=== PATIENT | female | born 1960 | race Caucasian/White ===

== ENCOUNTER → 2017-03-20 | Outpatient (CLI) | payer BC, OTHER ==
[~2017-03-20] MED LIST: AGM875 PO; AMOX875T PO; ERGO500037 PO; LRT5 PO; OXYC-57 PO; SULF800T23 PO; XRL10 PO
[2017-03-20 13:34] LABS: HEMATOCRIT 45.4 % (37-47); MEAN CELL VOLUME 87.1 fL (80-100); MEAN CORPUSCULAR HEMOGLOBIN 28.2 pg (25-34); MEAN CORPUSCULAR HGB CONC 32.4 g/dl (32-36); MEAN PLATELET VOLUME 11.2 fL (7.4-10.4); PLATELET COUNT 211 K/uL (130-400); RED BLOOD COUNT 5.21 M/uL (4.2-5.4); WHITE BLOOD COUNT 8.94 K/uL (4.8-10.8)
[2017-03-20 14:09] LABS: ALT/SGPT 19 U/L (12-78); BLOOD UREA NITROGEN 16 mg/dl (7-18); BUN/CREATININE RATIO 18.3 (10-20); CARBON DIOXIDE 29 mmol/L (21-32); CHLORIDE 103 mmol/L (98-107); CREATININE 0.86 mg/dl (0.60-1.20); GLUCOSE 87 mg/dl (70-99); SODIUM 139 mmol/L (136-145)
[2017-03-20 14:19] LABS: ALB/GLOB RATIO 1.3 (0.9-2); ALKALINE PHOSPHATASE 74 U/L (45-117); AST/SGOT 11 U/L (15-37)
[2017-03-20 14:30] LABS: CALCIUM 9.3 mg/dl (8.5-10.1)
[2017-03-23 14:44] LABS: EBV EARLY ANTIGEN AB <0.91 INDEX; EPSTEIN BARR VIR CAPSID IGG 3.73 INDEX
== END | disposition home or self-care (01) ==
LOC: C.LABMFLN 10:23
PROVIDERS: ATTEND Family Medicine
DX: R53.83 Other fatigue (principal); T14.8 Other injury of unspecified body region; X58.XXXA Exposure to other specified factors, initial encounter

== ENCOUNTER → 2017-04-03 | Outpatient (CLI) | payer BC | END | disposition home or self-care (01) | LOC: C.LABMFLN 15:01 | PROVIDERS: ATTEND Family Medicine | DX: S80.10XA Contusion of unspecified lower leg, initial encounter (principal); X58.XXXA Exposure to other specified factors, initial encounter ==

== ENCOUNTER 2017-04-07 13:31 | Inpatient (IN) | payer BC ==
[~2017-04-07] VITALS: Ht 167.6 cm; Wt 90.5 kg
[~2017-04-07 13:31] MED LIST changes: -AMOX875T PO; -ERGO500037 PO; -OXYC-57 PO; -XRL10 PO
--- NOTE | 2017-04-07 14:07 | HISTORY & PHYSICAL EXAMINATION ---
DATE OF ADMISSION: 04/07/2017 CHIEF COMPLAINT: Left leg injury. HISTORY OF PRESENT ILLNESS: This is a 56-year-old female patient of Dr. Valverde who sustained an injury to her left leg on 03/30/2017. The patient got her leg smashed between a cement step and storm door. The patient reported to [facility] where x-rays were obtained on her tib-fib and her ankle on the left lower extremity. These were determined to be negative for any type fractures or dislocations. She was sent home. The following day she did see her PCP and D-dimer test was noted to be elevated. She had a chest CT and ultrasound negative for PE, but she was positive for DVT. The patient was subsequently put on Xarelto 15 mg b.i.d.; however, upon visiting her family physician again they were concerned about a compartment syndrome on her left lower extremity. She was instructed to stop the Xarelto and was referred to orthopedics. PAST MEDICAL HISTORY: Irregular heartbeat or palpitation nontreated. Currently a DVT, acid reflux, obesity. SOCIAL HISTORY: Nonsmoker, nondrinker. PAST SURGICAL HISTORY: Hernia repair. FAMILY HISTORY: Noncontributory. REVIEW OF SYSTEMS: The patient complains of left lower leg calf swelling and pain. She also complains of a superficial abrasion with redness. Otherwise, denies any shortness of breath, chest pain, nausea, vomiting or any other joint complaints. MEDICATIONS: She uses [id number] vitamin D. ALLERGIES: CECLOR AND CLINDAMYCIN. PHYSICAL EXAMINATION: GENERAL: Well-developed, well-nourished 56-year-old female in no acute distress. She is alert and oriented x3 and pleasant. HEAD, EYES, EARS, NOSE, AND THROAT: Normocephalic, atraumatic. Extraocular motions are intact. Pupils are equal and reactive to light. HEART: Regular rate and rhythm, no murmurs appreciated. LUNGS: Clear. ABDOMEN: Soft and nontender, bowel sounds are present. EXTREMITIES: Left lower extremity, she has got obvious swelling of the leg below the level of the knee. This is not tense like a compartment syndrome would look. It is somewhat supple, however she is tender due to the blood clot. She has also got a superficial abrasion with some cellulitis around it on her medial calf area. She has good distal pulses. Gentle passive range of motion of the ankle and plantarflexion, dorsiflexion and passive range of motion of her toes do not elicit any pain. She has a negative Homans sign. She has a negative exam in her knee. DIAGNOSES: 1. Left lower extremity deep venous thrombosis. 2. Left lower extremity superficial abrasion with cellulitis. 3. Possible development of compartment syndrome, left lower extremity, low possibility at this point in time. She also has a history of irregular heartbeat, acid reflux and obesity. PLAN: At this point in time, we will admit her to the hospital for IV antibiotics that being vancomycin. She does look like she is developing a cellulitis around her abrasion on her left lower leg. She also currently has a DVT. We will have to get medicine on board and consulted for treatment for that. Per Dr. Jacobsen we will also get vascular consult due to the fact that she may be developing a compartment syndrome plus she needs blood thinners. She may need some sort of filter placement. We will consult pharmacy for vancomycin dosing and we will consult infectious disease for antibiotic choices. We will consult [facility] for medical management. The major issues at this point in time is treating the DVT and preventing the development of a compartment syndrome left LE, secondly treating the cellulitis on her leg. We will follow her in the hospital. LYNDA
[2017-04-07 14:24] VITALS: BP 157/87; PULSE 88; TEMP 36.6; O2SAT 99
[2017-04-07 14:25] VITALS: Ht 167.6 cm; Wt 90.5 kg
[2017-04-07] MEDS ORDERED: XRL10 PO (14:47)
[2017-04-07] MEDS ORDERED: ERGO500037 PO (14:47)
[2017-04-07 14:55] VITALS: O2SAT 99
[2017-04-07 15:18] VITALS: BP 142/84; PULSE 88; TEMP 36.9; O2SAT 99
[2017-04-07 15:29] LABS: BASO % 0.2 %; BASO ABS # 0.02 K/uL (0-0.2); COMPLETE YES; EOS % 2.1 %; HEMATOCRIT 42.1 % (37-47); IG% 0.5 %; LYMPH % 33.2 %; LYMPH ABS # 2.72 K/uL (1.2-3.4); MEAN CELL VOLUME 86.8 fL (80-100); MEAN CORPUSCULAR HEMOGLOBIN 28.7 pg (25-34); MEAN PLATELET VOLUME 11.4 fL (7.4-10.4); MONO % 6.7 %; NEUT % 57.3 %; PLATELET COUNT 197 K/uL (130-400); RED BLOOD COUNT 4.85 M/uL (4.2-5.4); WHITE BLOOD COUNT 8.19 K/uL (4.8-10.8)
--- NOTE | 2017-04-07 15:34 | Medical Consult ---
Consultation Date of Consultation: April 07, 2017. Attending Physician: Fred Jacobsen M.D. Reason for Consultation: Medical management History of Present Illness This is a 56 yo F with PMHx of palpitations, GERD, obesity, LLE DVT on xarelto with development of cellulitis and possible compartment syndrome after a injury sustained on 03/30 where she was trying to close her door, and the screen door fell out which caused her to fall, her foot was caught between a cement step and the screen door. She was seen in [place] [facility] and had no acute fractures at that time. She had a venous ultrasound completed and found to have LLE DVT for which she was placed on xarelto on 04/05. After concerns of developing compartment syndrome she stopped taking xarelto (had a total of 5 doses) and was referred to the orthopedic service by her PCP this morning. She has been admitted under Dr. Jacobsen's service. Medicine has been consulted for medical management. The patient was seen and examined this afternoon. She reports her pain is significant, and has been using oxycodone which dulls the pain. She has been unable to bear weight on this leg for a few days now, with today being the worst and she has required a walker to help with ambulation. She denies any fevers, chills or sweats. Pt reports the redness surrounding the abrasion seemed worse this morning when she woke up. Since RASHEL wrap was applied at approx 1pm, she thinks the redness has decreased. The left calf is extremely tender surrounding the medial abraision/contusion. She is also quite swollen and experiencing some numbness in the arch of her foot. She has been eating and drinking fine, but reports since starting oxycodone she has had less bowel movements, LBM was 3 days ago. In regards to an irregular heart beat - pt reports she feels palpitations on and off since 2010. She reports it has been happening more for the past 3 months. There are no trigger factors, and it occurs when she is sitting down, walking, or doing normal ADLs. She was placed on a holter monitor ~2 weeks ago for a 48 hour monitoring, however it only recorded for 7 hours. She was supposed to be rescheduled for holter monitoring again on April 18. 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 Social History Smoking Status: Never Smoker Smokeless Tobacco Use: No Alcohol Use: occasionally Drug Use: none Marital Status: Housing Status: lives with family Occupation Status: employed Allergies Coded Allergies: Cefaclor (Verified Allergy, Intermediate, HIVES, 04/07/17) Clindamycin (Verified Allergy, Intermediate, HIVES, 04/07/17) Review of Systems Constitutional: No chills, No fever, No sweats Eyes: No diplopia, No problem reported ENT: No sore throat, No trouble swallowing Respiratory: No dyspnea at rest, No dyspnea on exertion, No shortness of breath Cardiovascular: + palpitations, No chest pain Abdomen: + constipation, No diarrhea, No nausea, No pain, No vomiting Musculoskeletal: + calf pain, + problem reported (See HPI), + swelling, No joint pain Genitourinary - Female: No dysuria, No hematuria Neurologic: No paralysis, No weakness Hematologic / Lymphatic: + problem reported Integumentary: No itch, No rash Physical Exam Date Time Temp Pulse Resp B/P Pulse Ox O2 Delivery O2 Flow Rate FiO2 04/07/17 14:55 99 Room Air 04/07/17 14:25 Room Air 99.0 04/07/17 14:24 36.6 88 16 157/87 99 Room Air General Appearance: WD/WN, no apparent distress Head: normocephalic, atraumatic Eyes: PERRL, EOMI ENT: hearing grossly normal, pharynx normal Neck: supple, no JVD Respiratory/Chest: chest non-tender, lungs clear, normal breath sounds, no accessory muscle use Cardiovascular: regular rate, rhythm, no gallop, no murmur Abdomen/GI: normal bowel sounds, non tender, soft, no organomegaly Back: normal inspection Extremities/Musculoskelatal: + pertinent finding (LLE with abraision with underlying ecchymosis, + erythema surrounding the area has been outlines, + swelling from toes up to knee, nonpitting, + Tenderness with minimal palpation, skin is tight, pt unable to bear weight without pain. ) Neurologic/Psych: alert, normal reflexes, oriented x 3, + pertinent finding ( sensation to light touch intact in BLE.) Skin: normal color, warm/dry Laboratory Results Last 24 Hours Test 04/07/17 14:41 Assessment & Plan This is a 56 yo F with PMHx of irregular heartbeat, GERD, obesity, LLE DVT on xarelto with development of cellulitis and possible compartment syndrome after a injury sustained on 03/30 where she was trying to close her door, and the screen door fell out which caused her to fall, her foot was caught between a cement step and the screen door. She was seen in [place] ER and had no acute fractures at that time. She was scanned and found to have LLE DVT for which she was placed on xarelto. After concerns of developing comparment syndrome she stopped taking xarelto and was referred to the orthopedic service by her PCP this morning. She has been admitted under Dr. Jacobsen's service. Medicine has been consulted for LLE cellulitis. LLE Injury, possible development of compartment syndrome - management per primary team - holding xarelto for possible surgical intervention - ESR is elevated - Analgesia with percocet, tramadol - Will initiate bowel regimen as last BM was 3 days ago with dulcolax and miralax scheduled. DVT - holding xarelto in light of possible surgical procedure needed for compartment syndrome - Will ask cardiology and vascular surgery to discuss anticoagulation recs - ? if needs for IVC filter Cellulitis LLE - Antibiotic regimen with IV vancomycin initiated, WBC =8K without any left shift, other CBC components are WNL as well. - ID has been consulted Palpitations - Pt has report of palpitations as of March 20 in outpatient f/u for a 2 month timeframe. She was supposed to have a Holter monitor set up for within 3 weeks at that time, which would essentially be now, however due to her current status this has been withheld. - Monitor on tele for arrythmias: pt was on Holter monitor approx 2 weeks ago however it only recorded 7 hours worth. Outpatient set up scheduled for April 18. Will need confirmed prior to discharge. DVT ppx: gordy and scds on unaffected leg, (right), holding anticoagulation CODE STATUS: FULL CODE Disposition: From home Reviewed: Pt Seen/Exam by Me History Pt with ongoing pain to LE, improved a bit with elevation. States she feels fine otherwise. No chest pain, SOB. Pain is not worse than prior. States she took 5 doses of xarelto, last dose was yesterday AM. Pt states she became concerned about taking xarelto after seeing several commercials regarding this medication. She called her PCP who saw her this AM and referred her to ortho. Notified by the floor that there is no vascular surgery option this weekend ( neither Dr. Manzo or Dr. Casas). I called ortho concrete products dispatcher, Dr. Caban and explained this to him. He spoke with Dr. Jacobsen who feels that pt will likely not need the OR and therefore no IVC filter. He is agreeable to low dose heparin that can be d/c'd 4 hours prior to OR if needed. Agree with HPI/ROS as noted General Appearance: WD/WN, no apparent distress Respiratory: normal breath sounds, no respiratory distress Cardiovascular: normal peripheral pulses, regular rate, rhythm Gastrointestinal: non tender, soft Extremities: pedal edema (L), other (L LE pain to superficial palpitation) Neurologic/Psychiatric: alert, normal mood/affect, oriented x 3 Skin Characteristics: normal color, warm/dry Assessment/Plan Agree with plan as outlined above. L LE cellulitis with DVT and concern for compartment syndrome d/c xarelto, start low dose heparin As noted above: Notified by the floor that there is no vascular surgery option this weekend (neither Dr. Manzo or Dr. Casas). I called ortho concrete products dispatcher, Dr. Caban and explained this to him. He spoke with Dr. Jacobsen who feels that pt will likely not need the OR and therefore no IVC filter. He is agreeable to low dose heparin that can be d/c'd 4 hours prior to OR if needed. I did inform pt and her family member present at bedside about the above plan change due to no ortho coverage. Extensive discussion about compartment syndrome and alternative plans. She is agreeable to staying at [facility] for monitoring.
[2017-04-07] MEDS ORDERED: VANCOMYCIN CONSULT ACTIVE PRN (15:45)
--- NOTE | 2017-04-07 15:45 | DIAGNOSTIC IMAGING REPORT ---
CHEST ONE VIEW PORTABLE CLINICAL HISTORY: PRE OP COMPARISON STUDY: No previous studies for comparison. FINDINGS: The bones soft tissues and hemidiaphragms are normal. The cardiomediastinal silhouette is normal. The lungs are clear. The pulmonary vasculature is normal. IMPRESSION: Negative chest. Electronically signed by: Jose L Monroy M.D. 04/07/2017 3:43 PM Dictated Date/Time: 04/07/2017 3:42 PM
--- NOTE | 2017-04-07 15:49 | Pharmacy Progress Note ---
Pharmacy Abx Initial Consult Date of Service April 07, 2017. Pharmacy Dosing Scope Date of Consult: 04/07/17 Consultation requested by: Jose L Draper PA-C Pharmacy is consulted to initiate Vancomycin IV dosing therapy, order appropriate labs and adjust drug dose/frequency. Subjective The patient is a 56 year old female admitted on April 07, 2017 at 14:10. Objective Height (Feet): 5 Height (Inches): 6.00 Weight (Kilograms): 90.450 Vital Signs (Past 12Hrs) Vital Signs Past 12 Hours Date Time Temp Pulse Resp B/P Pulse Ox O2 Delivery O2 Flow Rate FiO2 04/07/17 15:18 36.9 88 18 142/84 99 Room Air 04/07/17 14:55 99 Room Air 04/07/17 14:25 Room Air 99.0 04/07/17 14:24 36.6 88 16 157/87 99 Room Air Lab Results (24Hrs) Test 04/07/17 14:41 04/07/17 15:15 White Blood Count 8.19 K/uL (4.8-10.8) Red Blood Count 4.85 M/uL (4.2-5.4) Hemoglobin 13.9 g/dL (12.0-16.0) Hematocrit 42.1 % (37-47) Mean Corpuscular Volume 86.8 fL (80-100) Mean Corpuscular Hemoglobin 28.7 pg (25-34) Mean Corpuscular Hemoglobin Concent 33.0 g/dl (32-36) Platelet Count 197 K/uL (130-400) Mean Platelet Volume 11.4 fL (7.4-10.4) Neutrophils (%) (Auto) 57.3 % Lymphocytes (%) (Auto) 33.2 % Monocytes (%) (Auto) 6.7 % Eosinophils (%) (Auto) 2.1 % Basophils (%) (Auto) 0.2 % Neutrophils # (Auto) 4.69 K/uL (1.4-6.5) Lymphocytes # (Auto) 2.72 K/uL (1.2-3.4) Monocytes # (Auto) 0.55 K/uL (0.11-0.59) Eosinophils # (Auto) 0.17 K/uL (0-0.5) Basophils # (Auto) 0.02 K/uL (0-0.2) RDW Standard Deviation 42.6 fL (36.4-46.3) RDW Coefficient of Variation 13.3 % (11.5-14.5) Immature Granulocyte % (Auto) 0.5 % Immature Granulocyte # (Auto) 0.04 K/uL (0.00-0.02) Micro Results Date/Time Source Procedure Growth Status 04/07/17 15:20 Blood Blood Culture Pending Received 04/07/17 15:15 Blood Blood Culture Pending Received Assessment & Plan Assessment 56 year old female admitted with LLE cellulitis. Patient sustained a injury to her left leg on 03/30/17. Plan Vancomycin IV for treatment of LE cellulitis Vancomycin IV * Loading dose: 2300 mg (25 mg/kg) * Maintenance dose: 1350 mg IV (15 mg/kg) every 12 hours * Goal trough level for cellulitis : 15 to 20 mcg/mL (until more data known) * Trough level ordered for 04/09/17 Pharmacy will continue to follow and will adjust dose/frequency as necessary. Thank you.
[2017-04-07 15:56] LABS: BUN/CREATININE RATIO 11.8 (10-20); C-REACTIVE PROTEIN 2.33 mg/dl (0-0.29); CALCIUM 8.6 mg/dl (8.5-10.1); CREATININE 0.95 mg/dl (0.60-1.20); POTASSIUM 3.7 mmol/L (3.5-5.1)
[2017-04-07] MEDS ORDERED: OXYCODONE/ACETAMINOPHEN 5-325 TAB PO PRN (16:15)
[2017-04-07] MEDS ORDERED: MoRPHine SULFATE 4 MG/ML 1 ML CARP\\VIAL IV PRN (16:15)
[2017-04-07] MEDS ORDERED: HYDROmorphone INJ 1 MG/ML SYR IV PRN (16:15)
[2017-04-07] MEDS ORDERED: MoRPHine SULFATE 2 MG/ML CARP IV PRN (16:15)
[2017-04-07] MEDS ORDERED: VANCOMYCIN INJ 2,300 MG in SODIUM CHLORIDE 0.9% 500ML 500 ML IV ONE (16:30)
[2017-04-07] MEDS: LACTATED RINGER'S 1000ML 1,000 ML IV SCH (16:50)
--- NOTE | 2017-04-07 17:14 | Medical Consult ---
Consultation Date of Consultation: April 07, 2017. Attending Physician: Fred Jacobsen M.D. Reason for Consultation: Left lower extremity cellulitis History of Present Illness Patient is an otherwise healthy 56 yo female who presented fro admission in regards to concern for left lower extremity possible developing compartment syndrome following traumatic injury at home. The patient initially got her left lower extremity caught in between her storm door and a cement block. She suffered abrasions to the area and was evaluated at [place] ED for concerns of fracture. She did not have any fracture or dislocations noted. She was then evaluated by her PCP and was noted to have an elevated DDimer and concern for blood clot. She had CT of the chest which was negative for PE but LLE Venous doppler was positive for DVT. She was placed on anticoagulation at that time but then was noted to have increasing pain and tightness to her left lower extremity. Concern for compartment syndrome was raised and she was sent to ortho for eval and then admitted for concerns of compartment syndrome/ infection. The patient states that last evening, she did have an episode of sweats but she has not had fever that she knows of. WBC countw as 8.19 on admission, and ESR was 13. CRP was mildly elevated at 2.33. She did have multiple pictures of her leg over the past few days and states that today is the first day there was any real surrounding erythema. She notes mild bloody drainage from the area. Blood cultures were drawn and are pending. She has been empirically started on IV Vancomycin but has no history of MRSA or recent hospitalization other than her ED visits. Past Medical/Surgical History PMHx: GERD, Obesity, LLE DVT on Xarelto, possible cellulitis Family History Noncontributory Social History Smoking Status: Never Smoker Smokeless Tobacco Use: No Alcohol Use: occasionally Drug Use: none Marital Status: Housing Status: lives with family Occupation Status: employed Allergies Coded Allergies: Cefaclor (Verified Allergy, Intermediate, HIVES, 04/07/17) Clindamycin (Verified Allergy, Intermediate, HIVES, 04/07/17) Home Medications Reported Home Medications Medications Dose Route/Sig Max Daily Dose Days Date Category Xarelto (Rivaroxaban) 10 Mg Tab 1.5 Tab PO BID 10 04/07/17 Reported Vitamin D 13654 Unit (Ergocalciferol) 50,000 Unit Cap 1 Cap PO 28 04/07/17 Reported Vicodin 5MG/500MG (Acetaminophen/Hydrocodone Bitart) Tab 1-2 Tablet PO Q4-6HR PRN 11/19/08 Rx Bactrim Ds 800MG/160MG (Trimethoprim/Sulfamethoxazole) Tab 1 Tab PO BID 7 11/19/08 Rx Augmentin * (Amoxicillin/Clavulanate Potassium) 875 Mg Tab 1 Tab PO BID 10 11/19/08 Rx Patient States No Home Meds (Miscellaneous) . 11/18/08 Reported Current Inpatient Medications Current Inpatient Medications Medications (Trade) Dose Ordered Sig/Yahaira Route Start Time Stop Time Status Last Admin Dose Admin Vancomycin HCl 1 ea 1 ea UD PRN N/A 04/07/17 15:45 05/07/17 15:44 Lactated Ringer's (Lr 1000ml) 1,000 ml @ 80 mls/hr [id number] IV 04/07/17 16:15 05/07/17 16:14 04/07/17 16:50 80 MLS/HR Oxycodone/ Acetaminophen (Percocet 5-325mg Tab) `1-2 tabs for pain 1 tab ... Q4H PRN PO 04/07/17 16:15 04/21/17 16:14 04/07/17 16:56 2 TAB Morphine Sulfate (MoRPHine SULFATE INJ) 2 mg Q3H PRN IV 04/07/17 16:15 04/21/17 16:14 Morphine Sulfate (MoRPHine SULFATE INJ) 4 mg Q3H PRN IV 04/07/17 16:15 04/21/17 16:14 Hydromorphone HCl (Dilaudid Inj) 0.5 mg Q3H PRN IV 04/07/17 16:15 04/21/17 16:14 UNV Oxycodone/ Acetaminophen (Percocet 5-325mg Tab) 1 tab Q4H PRN PO 04/07/17 16:15 04/21/17 16:14 UNV Bisacodyl (Dulcolax Tab) 5 mg BID PO 04/07/17 21:00 05/07/17 20:59 UNV Polyethylene (Miralax Powder Packet) 17 gm DAILY PO 04/08/17 09:00 05/08/17 08:59 UNV Tramadol HCl 50 mg 50 mg Q4H PRN PO 04/07/17 16:15 05/07/17 16:14 UNV Vancomycin HCl 2300 mg/Sodium Chloride 546 ml @ 200 mls/hr 1630 ONCE IV 04/07/17 16:30 04/07/17 19:13 Vancomycin HCl/ Sodium Chloride (Vancomycin Inj/ Nss 250ml) 277 ml @ 125 mls/hr Q12H IV 04/08/17 04:00 04/17/17 15:59 Review of Systems Constitutional: + sweats, No fever, No weakness Eyes: No worsening of vision ENT: No hearing loss Respiratory: No cough, No shortness of breath Cardiovascular: No chest pain Abdomen: No diarrhea, No nausea, No pain, No vomiting Musculoskeletal: + swelling (left lower extremity- worsening) Genitourinary - Female: No dysuria, No urinary frequency, No urinary urgency Integumentary: + new/changing skin lesions (erythema around abrasion of mid- left lower extremity, bloody drainage), No itch Physical Exam Date Time Temp Pulse Resp B/P Pulse Ox O2 Delivery O2 Flow Rate FiO2 04/07/17 15:18 36.9 88 18 142/84 99 Room Air 04/07/17 14:55 99 Room Air 04/07/17 14:25 Room Air 99.0 04/07/17 14:24 36.6 88 16 157/87 99 Room Air General Appearance: no apparent distress, + obese Head: normocephalic, atraumatic Eyes: normal inspection, funduscopic exam normal ENT: hearing grossly normal Neck: supple, trachea midline Respiratory/Chest: chest non-tender, lungs clear, normal breath sounds, no respiratory distress, no accessory muscle use Cardiovascular: regular rate, rhythm Abdomen/GI: normal bowel sounds, non tender, soft Back: normal inspection Extremities/Musculoskelatal: + calf tenderness, + swelling, + pertinent finding (left lower extremity edema and moderate tenderness of the medial component. Large approximately 6-7 cm in diameter abrasion of the left anterior lower extremity. Mild surrounding erythema and warmth. Very minimal bloody drainage, no purulence) Neurologic/Psych: alert, normal mood/affect Skin: + pertinent finding (as above) Laboratory Results CHEST ONE VIEW PORTABLE CLINICAL HISTORY: PRE OP COMPARISON STUDY: No previous studies for comparison. FINDINGS: The bones soft tissues and hemidiaphragms are normal. The cardiomediastinal silhouette is normal. The lungs are clear. The pulmonary vasculature is normal. IMPRESSION: Negative chest. Item Value Date Time Blood Culture Received 04/07/17 1520 Blood Pending Blood Culture Received 04/07/17 1515 Blood Pending Last 24 Hours Test 04/07/17 14:41 04/07/17 15:15 White Blood Count 8.19 K/uL Red Blood Count 4.85 M/uL Hemoglobin 13.9 g/dL Hematocrit 42.1 % Mean Corpuscular Volume 86.8 fL Mean Corpuscular Hemoglobin 28.7 pg Mean Corpuscular Hemoglobin Concent 33.0 g/dl Platelet Count 197 K/uL Mean Platelet Volume 11.4 fL Neutrophils (%) (Auto) 57.3 % Lymphocytes (%) (Auto) 33.2 % Monocytes (%) (Auto) 6.7 % Eosinophils (%) (Auto) 2.1 % Basophils (%) (Auto) 0.2 % Neutrophils # (Auto) 4.69 K/uL Lymphocytes # (Auto) 2.72 K/uL Monocytes # (Auto) 0.55 K/uL Eosinophils # (Auto) 0.17 K/uL Basophils # (Auto) 0.02 K/uL RDW Standard Deviation 42.6 fL RDW Coefficient of Variation 13.3 % Immature Granulocyte % (Auto) 0.5 % Immature Granulocyte # (Auto) 0.04 K/uL Erythrocyte Sedimentation Rate 13 mm/hr Sodium Level 142 mmol/L Potassium Level 3.7 mmol/L Chloride Level 107 mmol/L Carbon Dioxide Level 29 mmol/L Anion Gap 6.0 mmol/L Blood Urea Nitrogen 11 mg/dl Creatinine 0.95 mg/dl Est Creatinine Clear Calc Drug Dose 74.0 ml/min Estimated GFR () 77.1 Estimated GFR (Non- 66.5 BUN/Creatinine Ratio 11.8 Random Glucose 108 mg/dl Calcium Level 8.6 mg/dl C-Reactive Protein 2.33 mg/dl Assessment & Plan Patient with traumatic abrasion of the left lower extremity with left lower extremity DVT, possible compartment syndrome, and probable mild superficial infection. Patient is currently on IV Vancomycin. Feel this is appropriate pending workup, but likely could transition to PO Keflex tomorrow if improvement of surrounding erythema is seen quickly. Thanks PROVIDER ADDENDUM: Patient examined and reviewed with Ms. Mejía. Agree with above assessment.
[2017-04-07 19:37] VITALS: BP 114/75; PULSE 66; TEMP 36.8; O2SAT 91
[2017-04-07] MEDS ORDERED: HEPARIN IV LOW DOSE NO BOLUS SCH (20:00)
[2017-04-07 20:26] LABS: HEMATOCRIT 41.6 % (37-47); MEAN CELL VOLUME 87.4 fL (80-100); MEAN PLATELET VOLUME 11.1 fL (7.4-10.4); PLATELET COUNT 194 K/uL (130-400); RED BLOOD COUNT 4.76 M/uL (4.2-5.4); WHITE BLOOD COUNT 10.42 K/uL (4.8-10.8)
[2017-04-07 20:29] LABS: MEAN CORPUSCULAR HGB CONC 33.2 g/dl (32-36)
[2017-04-07 20:46] LABS: PARTIAL THROMBOPLASTIN RATIO 1.1; PROTHROMBIN TIME (PATIENT) 10.7 SECONDS (9.0-12.0)
[2017-04-07 21:17] LABS: URINE APPEARANCE CLEAR (CLEAR); URINE BILIRUBIN NEG (NEG); URINE COLOR YELLOW; URINE NITRITE NEG (NEG); URINE PH 6.5 (4.5-7.5); URINE SPECIFIC GRAVITY 1.014 (1.000-1.030); UROBILINOGEN NEG (NEG)
[2017-04-07 21:23] LABS: MANUAL MICROSCOPIC REQUIRED? NO; REVIEW REQ? NO
[2017-04-07] MEDS: HEPARIN 25,000 UNIT/500ML D5W 500 ML IV PRN ×2 (21:24→23:18)
[2017-04-07] MEDS: BISACODYL 5 MG TABEC PO SCH (21:45)
[2017-04-07 23:05] VITALS: BP 129/79; PULSE 67; TEMP 36.8; O2SAT 96
[2017-04-07] MEDS: OXYCODONE/ACETAMINOPHEN 5-325 TAB PO PRN (23:25)
[2017-04-08 03:54] LABS: BASO % 0.2 %; BASO ABS # 0.02 K/uL (0-0.2); COMPLETE YES; EOS % 2.9 %; HEMATOCRIT 37.8 % (37-47); IG% 0.2 %; LYMPH % 37.8 %; LYMPH ABS # 3.14 K/uL (1.2-3.4); MEAN CELL VOLUME 87.3 fL (80-100); MEAN CORPUSCULAR HEMOGLOBIN 29.1 pg (25-34); MEAN CORPUSCULAR HGB CONC 33.3 g/dl (32-36); NEUT % 52.9 %; PLATELET COUNT 176 K/uL (130-400); RED BLOOD COUNT 4.33 M/uL (4.2-5.4); WHITE BLOOD COUNT 8.31 K/uL (4.8-10.8)
[2017-04-08 04:15] LABS: BUN/CREATININE RATIO 12.9 (10-20); CALCIUM 8.2 mg/dl (8.5-10.1); CREATININE 0.97 mg/dl (0.60-1.20); POTASSIUM 4.1 mmol/L (3.5-5.1)
[2017-04-08 04:16] LABS: CHOLESTEROL/HDL RATIO 4.2
[2017-04-08] MEDS: VANCOMYCIN INJ 1,350 MG in SODIUM CHLORIDE 0.9% 250ML 250 ML IV SCH ×2 (04:20→16:08)
[2017-04-08 04:30] LABS: PARTIAL THROMBOPLASTIN RATIO 1.3
[2017-04-08] MEDS ORDERED: HEPARIN IV BOLUS 4,500 UNIT in SYRINGE 0 ML IV ONE (05:15)
[2017-04-08] MEDS: LACTATED RINGER'S 1000ML 1,000 ML IV SCH ×2 (05:24→17:52)
[2017-04-08] MEDS: HEPARIN 25,000 UNIT/500ML D5W 500 ML IV PRN ×7 (05:25→23:09)
[2017-04-08] MEDS: OXYCODONE/ACETAMINOPHEN 5-325 TAB PO PRN ×3 (05:54→19:18)
[2017-04-08 07:56] VITALS: BP 117/75; PULSE 68; TEMP 36.5; O2SAT 95
[2017-04-08] MEDS: POLYETHYLENE (MIRALAX) 17 GM PACK PO SCH (08:36)
[2017-04-08] MEDS: BISACODYL 5 MG TABEC PO SCH ×2 (08:36→20:53)
[2017-04-08 09:10] LABS: ESTIMATED AVERAGE GLUCOSE 114 mg/dl; HA1C FLAG Normal (Normal)
[2017-04-08] MEDS: TRAMADOL HCL 50 MG TAB PO PRN (09:30)
--- NOTE | 2017-04-08 09:44 | PROGRESS NOTE ---
DATE: 04/08/2017 DATE: 04/08/2017. CHIEF COMPLAINT: Left left injury. SUBJECTIVE: The patient reports that she is feeling much better since being in the hospital. She states that the swelling has gone down considerably and her pain has improved quite a deal. OBJECTIVE: The patient is supine in bed. Her leg is up on pillows. There continues to be the abrasion on the medial distal third of the tibia. There will likely be some skin loss, erythema appears to be decreasing compared to the outlines that were drawn yesterday. There is moderate bruising. Swelling is less and her calf and thigh are soft and there is no or minimal pain with stretch and negative Homans sign. Neurological and vascular function are intact. IMPRESSION: Left lower extremity syndrome with deep venous thrombosis. PLAN: At this point, the patient seems to be improving rapidly. I agree with switching her to an oral antibiotic. Would continue the IV heparin for probably another 24 hours. I doubt that surgery will be required at all for this patient. Would anticipate switching to Xarelto perhaps tomorrow monitoring her for another 24 hours and if all is well consider discharging her most likely on Monday on p.o. antibiotics, strict bed rest and elevation. A K-pad is ordered. No need for physical therapy. Understand that IV filter is not available, but I believe that we will be able to treat her conservatively and will not have to provide for this early in the week. Thank you for this consult.
[2017-04-08 11:28] LABS: PARTIAL THROMBOPLASTIN RATIO 1.7
[2017-04-08] MEDS ORDERED: HEPARIN IV BOLUS 3,000 UNIT in SYRINGE 0 ML IV ONE ×2 (12:15→20:15)
[2017-04-08 15:12] VITALS: BP 135/81; PULSE 78; TEMP 36.7; O2SAT 95
--- NOTE | 2017-04-08 16:52 | Hospitalist Progress Note ---
Hospitalist Progress Note Date of Service April 08, 2017. Subjective Pt evaluation today including: conversation w/ patient, conversation w/ family , physical exam, lab review, review of studies, review of inpatient medication list Pain: left leg painful, but tolerable- worse when standing or dangling PO Intake: tolerating po Voiding: no voiding problems no fever/chills. feels less swollen and less red. pain controlled although walking greatly increases pain Constitutional: No chills, No fatigue, No fever, No problem reported, No see HPI, No sweats, No weakness, No weight loss Eyes: No diplopia, No discharge, No eye pain, No problem reported, No redness, No see HPI, No worsening of vision Respiratory: No cough, No dyspnea at rest, No dyspnea on exertion, No hemoptysis, No problem reported, No see HPI, No shortness of breath, No sputum, No wheezing Cardiovascular: No PND, No chest pain, No claudication, No edema, No orthopnea, No palpitations, No problem reported, No see HPI Abdomen: No GI bleeding, No constipation, No diarrhea, No nausea, No pain, No problem reported, No see HPI, No vomiting Musculoskeletal: + calf pain, + swelling Neurologic: No balance problems, No memory loss, No numbness/tingling, No paralysis, No problem reported, No see HPI, No vertigo, No weakness Psychiatric: No anhedonism, No anxiety, No depression symptoms, No insomnia , No problem reported, No see HPI, No substance abuse Skin: + problem reported (left fatima swollen/abrasion/pain) Medications reviewed Objective Vital Signs Date Time Temp Pulse Resp B/P Pulse Ox O2 Delivery O2 Flow Rate FiO2 04/08/17 07:56 36.5 68 16 117/75 95 Room Air 04/08/17 07:24 Room Air 04/08/17 00:00 Room Air 04/07/17 23:05 36.8 67 16 129/79 96 Room Air 04/07/17 20:28 Room Air 04/07/17 19:37 36.8 66 18 114/75 91 Room Air 04/07/17 15:18 36.9 88 18 142/84 99 Room Air 04/07/17 14:55 99 Room Air 04/07/17 14:25 Room Air 99.0 04/07/17 14:24 36.6 88 16 157/87 99 Room Air Physical Exam General Appearance: no apparent distress Eyes: PERRL, sclerae normal ENT: hearing grossly normal, pharynx normal Neck: supple, no adenopathy Respiratory/Chest: chest non-tender, lungs clear, normal breath sounds Cardiovascular: regular rate, rhythm, no edema, no murmur Abdomen: normal bowel sounds, non tender, soft Extremities: + calf tenderness, + inflammation, + swelling (abrasion left medial fatima - small area draining serosanguinous urine - area less red still edematous from knee distally. dorsum of foot and around malleolus edematous) Neurologic/Psychiatric: no motor/sensory deficits (cms to left foot good), alert, normal mood/affect, oriented x 3 Skin: normal color, warm/dry, + pertinent finding (abrasion to medial fatima, periwound redness appears less compared to initial outline) Laboratory Results Last 24 Hours Test 04/07/17 15:15 04/07/17 20:15 04/07/17 21:05 04/08/17 03:36 White Blood Count 8.19 K/uL 10.42 K/uL 8.31 K/uL Red Blood Count 4.85 M/uL 4.76 M/uL 4.33 M/uL Hemoglobin 13.9 g/dL 13.8 g/dL 12.6 g/dL Hematocrit 42.1 % 41.6 % 37.8 % Mean Corpuscular Volume 86.8 fL 87.4 fL 87.3 fL Mean Corpuscular Hemoglobin 28.7 pg 29.0 pg 29.1 pg Mean Corpuscular Hemoglobin Concent 33.0 g/dl 33.2 g/dl 33.3 g/dl Platelet Count 197 K/uL 194 K/uL 176 K/uL Mean Platelet Volume 11.4 fL 11.1 fL 11.0 fL Neutrophils (%) (Auto) 57.3 % 52.9 % Lymphocytes (%) (Auto) 33.2 % 37.8 % Monocytes (%) (Auto) 6.7 % 6.0 % Eosinophils (%) (Auto) 2.1 % 2.9 % Basophils (%) (Auto) 0.2 % 0.2 % Neutrophils # (Auto) 4.69 K/uL 4.39 K/uL Lymphocytes # (Auto) 2.72 K/uL 3.14 K/uL Monocytes # (Auto) 0.55 K/uL 0.50 K/uL Eosinophils # (Auto) 0.17 K/uL 0.24 K/uL Basophils # (Auto) 0.02 K/uL 0.02 K/uL RDW Standard Deviation 42.6 fL 42.5 fL 42.8 fL RDW Coefficient of Variation 13.3 % 13.3 % 13.2 % Immature Granulocyte % (Auto) 0.5 % 0.2 % Immature Granulocyte # (Auto) 0.04 K/uL 0.02 K/uL Erythrocyte Sedimentation Rate 13 mm/hr Sodium Level 142 mmol/L 141 mmol/L Potassium Level 3.7 mmol/L 4.1 mmol/L Chloride Level 107 mmol/L 108 mmol/L Carbon Dioxide Level 29 mmol/L 30 mmol/L Anion Gap 6.0 mmol/L 3.0 mmol/L Blood Urea Nitrogen 11 mg/dl 13 mg/dl Creatinine 0.95 mg/dl 0.97 mg/dl Est Creatinine Clear Calc Drug Dose 74.0 ml/min 72.5 ml/min Estimated GFR () 77.1 75.1 Estimated GFR (Non- 66.5 64.8 BUN/Creatinine Ratio 11.8 12.9 Random Glucose 108 mg/dl 97 mg/dl Calcium Level 8.6 mg/dl 8.2 mg/dl C-Reactive Protein 2.33 mg/dl Prothrombin Time 10.7 SECONDS Prothromb Time International Ratio 1.0 Activated Partial Thromboplast Time 27.6 SECONDS 33.9 SECONDS Partial Thromboplastin Ratio 1.1 1.3 Urine Color YELLOW Urine Appearance CLEAR Urine pH 6.5 Urine Specific [place] 1.014 Urine Protein NEG Urine Glucose (UA) NEG Urine Ketones NEG Urine Occult Blood NEG Urine Nitrite NEG Urine Bilirubin NEG Urine Urobilinogen NEG Urine Leukocyte Esterase NEG Triglycerides Level 163 mg/dl Cholesterol Level 156 mg/dl HDL Cholesterol 37 mg/dl LDL Cholesterol, Calculated 86 mg/dl VLDL Cholesterol, Calculated 33 mg/dl Cholesterol/HDL Ratio 4.2 Assessment and Plan This is a 56 year old female with history of irregular heartbeat, GERD, obesity , LLE DVT on xarelto with development of cellulitis and possible compartment syndrome after a injury sustained on 03/30. She was trying to close her door, and the screen door fell out which caused her to fall, her foot was caught between a cement step and the screen door. She was seen in [place] and had no acute fractures at that time. She was scanned and found to have LLE DVT for which she was placed on Xarelto. After concerns of developing compartment syndrome she stopped taking Xarelto and was referred to the orthopedic service by her PCP this morning. She has been admitted under Dr. Jacobsen's service. Medicine has been consulted for LLE cellulitis. 1. LLE Injury, possible development of compartment syndrome - management per primary team (ortho) - Dr. Caban did not feel surgery would be needed. Holding Xarelto for possible surgical intervention - Analgesia with Percocet, tramadol 2. DVT LLE - holding Xarelto in light of possible surgical procedure needed for compartment syndrome - On Heparin IV while Xarelto on hold. Dr. Caban felt Xarelto could be resumed tomorrow if leg does not worsen. - Patient not sure if she wants to resume Xarelto. May need to D/C on Lovenox/ coumadin combination. 3. Cellulitis LLE - Periwound cellulitis. - Agree with ID can switch to oral antibiotics if some more improvement. Has allergy to Cefaclor and Clindamycin. No fever or elevated WBC or left shift 4. Palpitations - denies currently - no significant arrhythmias - Pt has report of palpitations as of March 20 in outpatient f/u for a 2 month timeframe. She was supposed to have a Holter monitor set up for within 3 weeks at that time, which would essentially be now, however due to her current status this has been withheld. - Monitor on tele for arrhythmias: pt was on Holter monitor approx 2 weeks ago however it only recorded 7 hours worth. Outpatient set up scheduled for April 18. Will need confirmed prior to discharge. 5. C/O constipation- Started on PRN dulcolax and miralax scheduled. 6. DVT prophylaxis - JESSICA/SCD on unaffected leg, (right), already on heparin infusion 7. CODE STATUS: FULL CODE 8. Disposition: per primary team. Continued [facility] stay due to: ambulation difficulties, multiple IV medications needed Discharge planning: home
[2017-04-08 18:42] LABS: PARTIAL THROMBOPLASTIN RATIO 1.7
[2017-04-08 23:55] VITALS: BP 124/75; PULSE 76; TEMP 36.9; O2SAT 96
[2017-04-09 02:20] LABS: PARTIAL THROMBOPLASTIN RATIO 2.1
[2017-04-09] MEDS: HEPARIN 25,000 UNIT/500ML D5W 500 ML IV PRN ×3 (02:41→14:57)
[2017-04-09] MEDS ORDERED: VANCOMYCIN TROUGH SCH (03:30)
[2017-04-09] MEDS: VANCOMYCIN INJ 1,350 MG in SODIUM CHLORIDE 0.9% 250ML 250 ML IV SCH ×2 (03:47→15:32)
[2017-04-09 04:14] LABS: BASO % 0.1 %; BASO ABS # 0.01 K/uL (0-0.2); COMPLETE YES; EOS % 3.1 %; HEMATOCRIT 37.8 % (37-47); IG% 0.4 %; LYMPH % 38.2 %; LYMPH ABS # 2.69 K/uL (1.2-3.4); MEAN CELL VOLUME 88.1 fL (80-100); MEAN CORPUSCULAR HEMOGLOBIN 28.9 pg (25-34); MEAN CORPUSCULAR HGB CONC 32.8 g/dl (32-36); MEAN PLATELET VOLUME 11.4 fL (7.4-10.4); MONO % 7.4 %; NEUT % 50.8 %; PLATELET COUNT 176 K/uL (130-400); RED BLOOD COUNT 4.29 M/uL (4.2-5.4); WHITE BLOOD COUNT 7.04 K/uL (4.8-10.8)
[2017-04-09 04:31] LABS: PARTIAL THROMBOPLASTIN RATIO 1.9
[2017-04-09 04:52] LABS: BUN/CREATININE RATIO 16.3 (10-20); CALCIUM 8.3 mg/dl (8.5-10.1); CREATININE 0.92 mg/dl (0.60-1.20); POTASSIUM 3.9 mmol/L (3.5-5.1)
[2017-04-09] MEDS: OXYCODONE/ACETAMINOPHEN 5-325 TAB PO PRN ×4 (05:00→23:49)
[2017-04-09] MEDS: LACTATED RINGER'S 1000ML 1,000 ML IV SCH ×2 (05:01→18:04)
[2017-04-09] MEDS: TRAMADOL HCL 50 MG TAB PO PRN ×2 (07:07→15:38)
[2017-04-09 07:12] VITALS: BP 148/78; PULSE 73; TEMP 36.8; O2SAT 97
[2017-04-09 07:22] VITALS: O2SAT 97
[2017-04-09] MEDS: BISACODYL 5 MG TABEC PO SCH ×2 (08:11→20:52)
[2017-04-09] MEDS: POLYETHYLENE (MIRALAX) 17 GM PACK PO SCH (08:12)
--- NOTE | 2017-04-09 10:33 | PROGRESS NOTE ---
DATE: 04/09/2017 CHIEF COMPLAINT: Left leg injury. SUBJECTIVE: The patient feels about the same as yesterday. She was up and down to the bathroom a lot and did have some discomfort with weightbearing. In bed, though she is comfortable. OBJECTIVE: The patient is supine in bed. Her leg remains up on pillows. The abrasions look about the same. There will probably be some limited skin loss, which I think will heal without any significant effort. The bruising appears to have decreased slightly and erythema has certainly decreased. Homans sign is negative and the patient is much more comfortable today with dorsiflexion of the foot. Neurological and vascular are intact. IMPRESSION: Left lower extremity crush with deep venous thrombosis, prevent compartment syndrome. PLAN: At this point, I feel that the likelihood of compartment syndrome is an extremely small. The patient continues to slowly improve. I have discussed with her that it is going to take a great deal of time for this to completely improve. I would recommend she start to be up for a little bit of walking. I feel that it would be safe to switch her at any time to some oral anticoagulant either Xarelto or Coumadin. The patient expresses wishes not to use Xarelto because of the side effects in the ad that she seen on TV. I have told her that no matter what oral agent we use, we should probably monitor here in the hospital for 24 hours or more to make sure that she does not have any abnormal bleeding. We will follow her tomorrow. We did not switch to an oral agent today because she wants to discuss this with the hospitalist.
--- NOTE | 2017-04-09 12:54 | Hospitalist Progress Note ---
Hospitalist Progress Note Date of Service April 09, 2017. Subjective Pt evaluation today including: conversation w/ patient, physical exam, lab review, review of studies Pain: painful when walking - percocet helps PO Intake: tolerating PO Voiding: no voiding problems feels leg not as swollen. still painful, but controlled with Percocet and/or tramadol. No fever or chills. was at bedside. Constitutional: No chills, No fatigue, No fever, No problem reported, No see HPI, No sweats, No weakness, No weight loss Respiratory: No cough, No dyspnea at rest, No dyspnea on exertion, No hemoptysis, No problem reported, No see HPI, No shortness of breath, No sputum, No wheezing Cardiovascular: No PND, No chest pain, No claudication, No edema, No orthopnea, No palpitations, No problem reported, No see HPI Abdomen: No GI bleeding, No constipation, No diarrhea, No nausea, No pain, No problem reported, No see HPI, No vomiting Musculoskeletal: + calf pain, + problem reported (left medial calf wound), + swelling Neurologic: No balance problems, No memory loss, No numbness/tingling, No paralysis, No problem reported, No see HPI, No vertigo, No weakness Skin: + problem reported (left calf traumatic abrasion/swelling/redness) Medications reviewed Objective Vital Signs Date Time Temp Pulse Resp B/P Pulse Ox O2 Delivery O2 Flow Rate FiO2 04/09/17 07:22 97 Room Air 04/09/17 07:12 36.8 73 17 148/78 97 Room Air 04/09/17 00:45 Room Air 04/08/17 23:55 36.9 76 14 124/75 96 Room Air 04/08/17 15:15 Room Air 04/08/17 15:12 36.7 78 20 135/81 95 Room Air Physical Exam General Appearance: no apparent distress Eyes: sclerae normal ENT: hearing grossly normal, pharynx normal Neck: supple, no JVD Respiratory/Chest: lungs clear, normal breath sounds, no respiratory distress Cardiovascular: regular rate, rhythm, no murmur Abdomen: normal bowel sounds, non tender, soft Extremities: + calf tenderness (just around wound), + inflammation, + pedal edema, + swelling, + pertinent finding (not as swollen although still edematous , no calor, redness less. no drainage today, abrasion part looks about the same) Neurologic/Psychiatric: no motor/sensory deficits, alert, oriented x 3 Skin: normal color, warm/dry, no rash Laboratory Results Last 24 Hours Test 04/08/17 17:49 04/09/17 01:45 04/09/17 03:41 Erythrocyte Sedimentation Rate 9 mm/hr Activated Partial Thromboplast Time 43.5 SECONDS 54.0 SECONDS 50.4 SECONDS Partial Thromboplastin Ratio 1.7 2.1 1.9 C-Reactive Protein 2.74 mg/dl White Blood Count 7.04 K/uL Red Blood Count 4.29 M/uL Hemoglobin 12.4 g/dL Hematocrit 37.8 % Mean Corpuscular Volume 88.1 fL Mean Corpuscular Hemoglobin 28.9 pg Mean Corpuscular Hemoglobin Concent 32.8 g/dl Platelet Count 176 K/uL Mean Platelet Volume 11.4 fL Neutrophils (%) (Auto) 50.8 % Lymphocytes (%) (Auto) 38.2 % Monocytes (%) (Auto) 7.4 % Eosinophils (%) (Auto) 3.1 % Basophils (%) (Auto) 0.1 % Neutrophils # (Auto) 3.57 K/uL Lymphocytes # (Auto) 2.69 K/uL Monocytes # (Auto) 0.52 K/uL Eosinophils # (Auto) 0.22 K/uL Basophils # (Auto) 0.01 K/uL RDW Standard Deviation 42.7 fL RDW Coefficient of Variation 13.4 % Immature Granulocyte % (Auto) 0.4 % Immature Granulocyte # (Auto) 0.03 K/uL Sodium Level 144 mmol/L Potassium Level 3.9 mmol/L Chloride Level 107 mmol/L Carbon Dioxide Level 31 mmol/L Anion Gap 6.0 mmol/L Blood Urea Nitrogen 15 mg/dl Creatinine 0.92 mg/dl Est Creatinine Clear Calc Drug Dose 76.4 ml/min Estimated GFR () 80.1 Estimated GFR (Non- 69.1 BUN/Creatinine Ratio 16.3 Random Glucose 100 mg/dl Calcium Level 8.3 mg/dl Vancomycin Level Trough 15.7 mcg/ml Assessment and Plan This is a 56 year old female with history of irregular heartbeat, GERD, obesity , LLE DVT on xarelto with development of cellulitis and possible compartment syndrome after a injury sustained on 03/30. She was trying to close her door, and the screen door fell out which caused her to fall, her foot was caught between a cement step and the screen door. She was seen in [place] [facility] and had no acute fractures at that time. She was scanned and found to have LLE DVT for which she was placed on Xarelto. After concerns of developing compartment syndrome she stopped taking Xarelto and was referred to the orthopedic service by her PCP this morning. She has been admitted under Dr. Jacobsen's service. Medicine has been consulted for LLE cellulitis. 1. LLE Injury, possible development of compartment syndrome - management per primary team (ortho) - Dr. Caban does not feel surgery would be needed. - Analgesia with Percocet, tramadol 2. DVT LLE - No surgery likely. May restart Xarelto. in light of possible surgical procedure needed for compartment syndrome - On Heparin IV while Xarelto on hold. Stop Heparin gtt when time for next dose of Xarelto and resume Xarelto - Spoke with patient and . they are okay with Xarelto. Initially she was thinking about switching to Coumdadin. 3. Cellulitis LLE - Periwound cellulitis. - Agree with ID can switch to oral antibiotics if some more improvement. Has allergy to Cefaclor and Clindamycin. No fever or elevated WBC or left shift - Would continue IV Vanco another day. - Could consider Bactrim on D/C as she has tolerated it before. 4. Palpitations - denies currently - no significant arrhythmias this far. - Pt has report of palpitations as of March 20 in outpatient f/u for a 2 month timeframe. - Monitor on tele for arrhythmias: pt was on Holter monitor approx 2 weeks ago however it only recorded 7 hours worth. - Outpatient set up scheduled for April 18 to repeat Holter. 5. C/O constipation- Started on PRN dulcolax and miralax scheduled. 6. DVT prophylaxis - JESSICA/SCD on unaffected leg, (right), already on heparin infusion and will switch to Xarelto later. 7. CODE STATUS: FULL CODE 8. Disposition: per primary team. Continued [facility] stay due to: multiple IV medications needed Discharge planning: home
--- NOTE | 2017-04-09 13:17 | Pharmacy Progress Note ---
Pharmacy Abx Dose Progress Nt Date of Service April 09, 2017. Pharmacy Dosing Scope The patient is currently receiving the following antimicrobial agents per Pharmacy consult: Vancomycin 1350 mg IV every 12 hours Objective Height (Feet): 5 Height (Inches): 6.00 Weight (Kilograms): 90.450 Vital Signs (Past 12Hrs) Vital Signs Past 12 Hours Date Time Temp Pulse Resp B/P Pulse Ox O2 Delivery O2 Flow Rate FiO2 04/09/17 07:22 97 Room Air 04/09/17 07:12 36.8 73 17 148/78 97 Room Air Lab Results (24Hrs) Test 04/08/17 17:49 04/09/17 01:45 04/09/17 03:41 Erythrocyte Sedimentation Rate 9 mm/hr (0-21) C-Reactive Protein 2.74 mg/dl (0-0.29) Activated Partial Thromboplast Time 54.0 SECONDS (21.0-31.0) 50.4 SECONDS (21.0-31.0) Partial Thromboplastin Ratio 2.1 1.9 White Blood Count 7.04 K/uL (4.8-10.8) Red Blood Count 4.29 M/uL (4.2-5.4) Hemoglobin 12.4 g/dL (12.0-16.0) Hematocrit 37.8 % (37-47) Mean Corpuscular Volume 88.1 fL (80-100) Mean Corpuscular Hemoglobin 28.9 pg (25-34) Mean Corpuscular Hemoglobin Concent 32.8 g/dl (32-36) Platelet Count 176 K/uL (130-400) Mean Platelet Volume 11.4 fL (7.4-10.4) Neutrophils (%) (Auto) 50.8 % Lymphocytes (%) (Auto) 38.2 % Monocytes (%) (Auto) 7.4 % Eosinophils (%) (Auto) 3.1 % Basophils (%) (Auto) 0.1 % Neutrophils # (Auto) 3.57 K/uL (1.4-6.5) Lymphocytes # (Auto) 2.69 K/uL (1.2-3.4) Monocytes # (Auto) 0.52 K/uL (0.11-0.59) Eosinophils # (Auto) 0.22 K/uL (0-0.5) Basophils # (Auto) 0.01 K/uL (0-0.2) RDW Standard Deviation 42.7 fL (36.4-46.3) RDW Coefficient of Variation 13.4 % (11.5-14.5) Immature Granulocyte % (Auto) 0.4 % Immature Granulocyte # (Auto) 0.03 K/uL (0.00-0.02) Sodium Level 144 mmol/L (136-145) Potassium Level 3.9 mmol/L (3.5-5.1) Chloride Level 107 mmol/L (98-107) Carbon Dioxide Level 31 mmol/L (21-32) Anion Gap 6.0 mmol/L (3-11) Blood Urea Nitrogen 15 mg/dl (7-18) Creatinine 0.92 mg/dl (0.60-1.20) Est Creatinine Clear Calc Drug Dose 76.4 ml/min Estimated GFR () 80.1 Estimated GFR (Non- 69.1 BUN/Creatinine Ratio 16.3 (10-20) Random Glucose 100 mg/dl (70-99) Calcium Level 8.3 mg/dl (8.5-10.1) Vancomycin Level Trough 15.7 mcg/ml (SEE COMMENT) Serology Item Value Date Time Vancomycin Level Trough 15.7 mcg/ml 04/09/17 0341 Micro Results Date/Time Source Procedure Growth Status 04/07/17 15:20 Blood Blood Culture - Preliminary NO GROWTH TO DATE. Resulted 04/07/17 15:15 Blood Blood Culture - Preliminary NO GROWTH TO DATE. Resulted Assessment & Plan Assessment 56 year old female receiving Vancomycin for treatment of LLE cellulitis. Day # 3/ of antimicrobial therapy Plan Vancomycin IV * Trough level of 15.7 mcg/mL is therapeutic. * Continue dose of Vancomycin 1350 mg IV every 12 hours. * Goal trough level for Cellulitis: ~ 15 mcg/mL * Will re-check trough Vanco level in few days if renal function remains stable and sooner if it worsens. Pharmacy will continue to follow and will adjust dose/frequency as necessary. Thank you.
[2017-04-09 15:21] VITALS: BP 114/71; PULSE 76; TEMP 36.7; O2SAT 95
[2017-04-09] MEDS: RIVAROXABAN TAB 15 MG TAB PO SCH (20:52)
[2017-04-09 23:35] VITALS: BP 117/74; PULSE 69; TEMP 36.3; O2SAT 97
[2017-04-10] MEDS: VANCOMYCIN INJ 1,350 MG in SODIUM CHLORIDE 0.9% 250ML 250 ML IV SCH ×2 (04:31→16:00)
[2017-04-10] MEDS: OXYCODONE/ACETAMINOPHEN 5-325 TAB PO PRN ×5 (04:36→23:28)
[2017-04-10 06:03] LABS: BASO % 0.3 %; BASO ABS # 0.02 K/uL (0-0.2); COMPLETE YES; EOS % 3.4 %; HEMATOCRIT 40.2 % (37-47); IG% 0.6 %; LYMPH % 38.8 %; LYMPH ABS # 2.71 K/uL (1.2-3.4); MEAN CELL VOLUME 87.2 fL (80-100); MEAN CORPUSCULAR HEMOGLOBIN 27.3 pg (25-34); MEAN CORPUSCULAR HGB CONC 31.3 g/dl (32-36); MEAN PLATELET VOLUME 10.7 fL (7.4-10.4); MONO % 8.3 %; NEUT % 48.6 %; PLATELET COUNT 200 K/uL (130-400); RED BLOOD COUNT 4.61 M/uL (4.2-5.4); WHITE BLOOD COUNT 6.98 K/uL (4.8-10.8)
[2017-04-10 06:16] LABS: PARTIAL THROMBOPLASTIN RATIO 1.3
--- NOTE | 2017-04-10 06:57 | Orthopedic Progress Note ---
Orthopedic Progress Note Date of Service April 10, 2017. Subjective Reports: feeling well, pain controlled w PO medications, Denies: SOB, chest pain Additional Notes: FARHAT feels fine when she is in bed and the leg is elevated. When the leg is down or she is attempting to walk, the pain increases. She decided with medicine to start Xarelto last evening. She has had only one dose. She is currently getting IV Vancomycin. Objective calves soft nontender, N/V intact, capillary refill less than 2 sec., A&O x3, toes mobile Left medial lower leg: abrasions that are scabbed. No drainage today. Mild erythema around the abrasions. There may be a small hematoma beneath the abrasions. Area is tender to light palpation. The more proximal calf is soft. No tense areas noted. Distally, there is mild to moderate foot and ankle swelling. Dorsalis pedis pulse is +1-2. Sensation is intact distally LLE. Date Time Temp Pulse Resp B/P Pulse Ox O2 Delivery O2 Flow Rate FiO2 04/09/17 23:55 Room Air 04/09/17 23:35 36.3 69 18 117/74 97 Room Air 04/09/17 15:21 36.7 76 18 114/71 95 Room Air 04/09/17 15:20 Room Air 04/09/17 07:22 97 Room Air 04/09/17 07:12 36.8 73 17 148/78 97 Room Air Laboratory Results 24 Hours: Test 04/10/17 05:49 White Blood Count 6.98 K/uL Red Blood Count 4.61 M/uL Hemoglobin 12.6 g/dL Hematocrit 40.2 % Mean Corpuscular Volume 87.2 fL Mean Corpuscular Hemoglobin 27.3 pg Mean Corpuscular Hemoglobin Concent 31.3 g/dl Platelet Count 200 K/uL Mean Platelet Volume 10.7 fL Neutrophils (%) (Auto) 48.6 % Lymphocytes (%) (Auto) 38.8 % Monocytes (%) (Auto) 8.3 % Eosinophils (%) (Auto) 3.4 % Basophils (%) (Auto) 0.3 % Neutrophils # (Auto) 3.39 K/uL Lymphocytes # (Auto) 2.71 K/uL Monocytes # (Auto) 0.58 K/uL Eosinophils # (Auto) 0.24 K/uL Basophils # (Auto) 0.02 K/uL Assessment & Plan Assessment: LLE crush injury with abrasions and superficial cellulitis. Possible hematoma LLE. LLE pain secondary to injury. DVT--started Xarelto last evening. Plan: Plan is to continue to monitor patient today so she has a full 24 hours of being on Xarelto to make sure there is no other bleeding issues. Will be able to switch to PO antibiotics today and d/c Vancomycin. Keflex or Bactrim will be the options. WBAT LLE. Pain control. Plan for possible d/c tomorrow, 17. Discharge Planning Discharge Planning: home (on Xarelto and PO antibiotics)
--- NOTE | 2017-04-10 07:21 | Medical Consult ---
Consultation Note Date of Service April 10, 2017. Consultation Note On vacation, refer to surgery or transfer if needed.
[2017-04-10 07:28] VITALS: BP 112/72; PULSE 62; TEMP 36.4; O2SAT 98
[2017-04-10] MEDS: RIVAROXABAN TAB 15 MG TAB PO SCH ×2 (08:57→20:55)
[2017-04-10] MEDS: POLYETHYLENE (MIRALAX) 17 GM PACK PO SCH (08:58)
[2017-04-10] MEDS: BISACODYL 5 MG TABEC PO SCH ×2 (09:00→20:56)
[2017-04-10 15:22] VITALS: BP 124/72; PULSE 75; TEMP 37; O2SAT 96
[2017-04-10] MEDS: TRAMADOL HCL 50 MG TAB PO PRN (17:10)
[2017-04-10 22:51] VITALS: BP 125/77; PULSE 71; TEMP 37; O2SAT 94
[2017-04-11] MEDS: VANCOMYCIN INJ 1,350 MG in SODIUM CHLORIDE 0.9% 250ML 250 ML IV SCH ×2 (04:17→16:56)
[2017-04-11] MEDS: OXYCODONE/ACETAMINOPHEN 5-325 TAB PO PRN ×5 (04:22→23:33)
[2017-04-11 06:54] LABS: PARTIAL THROMBOPLASTIN RATIO 1.3
[2017-04-11 07:19] LABS: CREATININE 0.88 mg/dl (0.60-1.20)
[2017-04-11 07:57] VITALS: BP 114/72; PULSE 60; TEMP 36.5; O2SAT 92
[2017-04-11 08:28] VITALS: O2SAT 92
[2017-04-11] MEDS: BISACODYL 5 MG TABEC PO SCH ×2 (08:38→22:37)
[2017-04-11] MEDS: POLYETHYLENE (MIRALAX) 17 GM PACK PO SCH (08:39)
[2017-04-11] MEDS: RIVAROXABAN TAB 15 MG TAB PO SCH ×2 (08:39→22:37)
--- NOTE | 2017-04-11 08:57 | Progress Note ---
Subjective Date of Service: April 10, 2017. Subjective Pt evaluation today including: conversation w/ patient, conversation w/ family , physical exam, lab review, review of inpatient medication list Pain: mildly increased pain today PO Intake: adequate Voiding: no voiding problems slightly more pain today when walking, thinks the leg is slightly more red, still warm and swollen no other issues Review of Systems Skin: + problem reported (left leg cellulitis due to injury), + rash (left lower leg redness, warmth, tenderness to palpation and with ambulation) All Other Systems: Reviewed and Negative Medications Current Inpatient Medications Medications (Trade) Dose Ordered Sig/Yahaira Route Start Time Stop Time Status Last Admin Dose Admin Vancomycin HCl (Consult) 1 ea UD PRN N/A 04/07/17 15:45 05/07/17 15:44 Hydromorphone HCl (Dilaudid Inj) 0.5 mg Q3H PRN IV 04/07/17 16:15 04/21/17 16:14 Oxycodone/ Acetaminophen (Percocet 5-325mg Tab) 1 tab Q4H PRN PO 04/07/17 16:15 04/21/17 16:14 04/10/17 14:25 1 TAB Bisacodyl (Dulcolax Tab) 5 mg BID PO 04/07/17 21:00 05/07/17 20:59 04/10/17 09:00 5 MG Polyethylene (Miralax Powder Packet) 17 gm DAILY PO 04/08/17 09:00 05/08/17 08:59 Tramadol HCl 50 mg 50 mg Q4H PRN PO 04/07/17 16:15 05/07/17 16:14 04/09/17 15:38 50 MG Vancomycin HCl/ Sodium Chloride (Vancomycin Inj/ Nss 250ml) 277 ml @ 125 mls/hr Q12H IV 04/08/17 04:00 04/17/17 15:59 04/10/17 16:00 125 MLS/HR Rivaroxaban (Xarelto Tab) 15 mg BID PO 04/09/17 21:00 04/30/17 20:59 04/10/17 08:57 15 MG Objective Vital Signs Date Time Temp Pulse Resp B/P Pulse Ox O2 Delivery O2 Flow Rate FiO2 04/10/17 15:22 37.0 75 18 124/72 96 Room Air 04/10/17 07:45 Room Air 04/10/17 07:28 36.4 62 16 112/72 98 Room Air 04/09/17 23:55 Room Air 04/09/17 23:35 36.3 69 18 117/74 97 Room Air Physical Exam General Appearance: WD/WN, no apparent distress Eyes: normal inspection, EOMI, sclerae normal ENT: normal ENT inspection, hearing grossly normal, pharynx normal Neck: supple, no adenopathy, no JVD, trachea midline Respiratory/Chest: chest non-tender, lungs clear, normal breath sounds, no respiratory distress, no accessory muscle use Cardiovascular: regular rate, rhythm, no edema, no gallop, no JVD, no murmur Abdomen: normal bowel sounds, non tender, soft, no organomegaly Extremities: normal range of motion, non-tender, normal inspection, no pedal edema, no calf tenderness, pelvis stable Neurologic/Psychiatric: metal sprayer protective coating II-XII nml as tested, no motor/sensory deficits, alert, normal mood/affect, oriented x 3 Skin: + pertinent finding (left leg cellulitis, warm, tender, blisters) Lymphatic: no adenopathy Laboratory Results Last 24 Hours Test 04/10/17 05:49 White Blood Count 6.98 K/uL Red Blood Count 4.61 M/uL Hemoglobin 12.6 g/dL Hematocrit 40.2 % Mean Corpuscular Volume 87.2 fL Mean Corpuscular Hemoglobin 27.3 pg Mean Corpuscular Hemoglobin Concent 31.3 g/dl Platelet Count 200 K/uL Mean Platelet Volume 10.7 fL Neutrophils (%) (Auto) 48.6 % Lymphocytes (%) (Auto) 38.8 % Monocytes (%) (Auto) 8.3 % Eosinophils (%) (Auto) 3.4 % Basophils (%) (Auto) 0.3 % Neutrophils # (Auto) 3.39 K/uL Lymphocytes # (Auto) 2.71 K/uL Monocytes # (Auto) 0.58 K/uL Eosinophils # (Auto) 0.24 K/uL Basophils # (Auto) 0.02 K/uL RDW Standard Deviation 42.8 fL RDW Coefficient of Variation 13.4 % Immature Granulocyte % (Auto) 0.6 % Immature Granulocyte # (Auto) 0.04 K/uL Activated Partial Thromboplast Time 33.0 SECONDS Partial Thromboplastin Ratio 1.3 Assessment and Plan This is a 56 year old female with history of irregular heartbeat, GERD, obesity , LLE DVT on xarelto with development of cellulitis and possible compartment syndrome after a injury sustained on 03/30. She was trying to close her door, and the screen door fell out which caused her to fall, her foot was caught between a cement step and the screen door. She was seen in [place] [facility] and had no acute fractures at that time. She was scanned and found to have LLE DVT for which she was placed on Xarelto. After concerns of developing compartment syndrome she stopped taking Xarelto and was referred to the orthopedic service by her PCP this morning. She has been admitted under Dr. Jacobsen's service. Medicine has been consulted for LLE cellulitis. 1. LLE Injury, no evidence of compartment syndrome - management per primary team (ortho) - Dr. Caban does not feel surgery would be needed. - Analgesia with Percocet, tramadol 2. DVT LLE - No surgery needed. continue Xarelto 3. Cellulitis LLE - Periwound cellulitis. - Agree with ID can switch to oral antibiotics if some more improvement. Has allergy to Cefaclor and Clindamycin. No fever or elevated WBC or left shift - Would continue IV Vanco while inpatient and then transition to PO for discharge - Could consider Bactrim DS on D/C as she has tolerated it before. 4. Palpitations - denies currently - no significant arrhythmias this far. - Pt has report of palpitations as of March 20 in outpatient f/u for a 2 month timeframe. - Monitor on tele for arrhythmias: pt was on Holter monitor approx 2 weeks ago however it only recorded 7 hours worth. - Outpatient set up scheduled for April 18 to repeat Holter. 5. C/O constipation- Started on PRN dulcolax and miralax scheduled. 6. DVT prophylaxis - JESSICA/SCD on unaffected leg, (right), already on heparin infusion and will switch to Xarelto later. 7. CODE STATUS: FULL CODE 8. Disposition: per primary team, planning tentatively for d/c home on 04/11 on Bactrim Continued [facility] stay due to: multiple IV medications needed Discharge planning: home
--- NOTE | 2017-04-11 10:48 | Infectious Disease Progress Nt ---
Progress Note Date of Service April 11, 2017. Subjective Pt evaluation today including: conversation w/ patient, physical exam, chart review, lab review, review of studies, conversation w/ security sales consultant (Dr. Espinosa, Grabiel Elam PA-C), review of inpatient medication list Patient states that the throbbing pain in the upper portion of her LLE has improved but she continues to have throbbing pain surrounding the traumatized area on her left medial lower extremity. She has also had some mild spreading of the surrounding erythema and bloody/serous drainage from the area. She has continued on IV Vancomycin. Ortho feels likelihood of compartment syndrome is very small. She was started on Xarelto. She has been afebrile. WBC count today was 6.98. Blood cultures have shown no growth. All Other Systems: Reviewed and Negative Medications Current Inpatient Medications Medications (Trade) Dose Ordered Sig/Yahaira Route Start Time Stop Time Status Last Admin Dose Admin Vancomycin HCl (Consult) 1 ea UD PRN N/A 04/07/17 15:45 05/07/17 15:44 Hydromorphone HCl (Dilaudid Inj) 0.5 mg Q3H PRN IV 04/07/17 16:15 04/21/17 16:14 Oxycodone/ Acetaminophen (Percocet 5-325mg Tab) 1 tab Q4H PRN PO 04/07/17 16:15 04/21/17 16:14 04/11/17 08:39 1 TAB Bisacodyl (Dulcolax Tab) 5 mg BID PO 04/07/17 21:00 05/07/17 20:59 04/11/17 08:38 5 MG Polyethylene (Miralax Powder Packet) 17 gm DAILY PO 04/08/17 09:00 05/08/17 08:59 Tramadol HCl 50 mg 50 mg Q4H PRN PO 04/07/17 16:15 05/07/17 16:14 04/10/17 17:10 50 MG Vancomycin HCl/ Sodium Chloride (Vancomycin Inj/ Nss 250ml) 277 ml @ 125 mls/hr Q12H IV 04/08/17 04:00 04/17/17 15:59 04/11/17 04:17 125 MLS/HR Rivaroxaban (Xarelto Tab) 15 mg BID PO 04/09/17 21:00 04/30/17 20:59 04/11/17 08:39 15 MG Objective Vital Signs Date Time Temp Pulse Resp B/P Pulse Ox O2 Delivery O2 Flow Rate FiO2 04/11/17 08:28 92 Room Air 04/11/17 07:57 36.5 60 15 114/72 92 Room Air 04/11/17 07:25 Room Air 04/10/17 23:35 Room Air 04/10/17 22:51 37.0 71 16 125/77 94 Room Air 04/10/17 16:00 Room Air 04/10/17 15:22 37.0 75 18 124/72 96 Room Air Physical Exam General Appearance: WD/WN, no apparent distress Eyes: normal inspection, sclerae normal ENT: normal ENT inspection Neck: supple, trachea midline Respiratory/Chest: no respiratory distress, no accessory muscle use Cardiovascular: regular rate, rhythm Extremities: + pertinent finding (left lower extremity with edema surrouding abrasion. Moderately severe tenderness of the surrounding area. Tenderness down into the ankle) Neurologic/Psychiatric: alert, oriented x 3 Skin: warm/dry, no rash, + pertinent finding (Continued healing abrasion of the left medial lower extremity. Some mild bloody drainage/serous drainage on exam. Continued surrounding erythema with some very mild spread laterally and proximally) Laboratory Results Item Value Date Time Blood Culture - Preliminary Resulted 04/07/17 1520 Blood NO GROWTH TO DATE. Blood Culture - Preliminary Resulted 04/07/17 1515 Blood NO GROWTH TO DATE. Last 24 Hours Test 04/11/17 06:08 Activated Partial Thromboplast Time 33.4 SECONDS Partial Thromboplastin Ratio 1.3 Creatinine 0.88 mg/dl Est Creatinine Clear Calc Drug Dose 79.9 ml/min Estimated GFR () 84.5 Estimated GFR (Non- 72.9 Assessment and Plan Patient with traumatic abrasion of the left lower extremity with left lower extremity DVT probable mild superficial infection, and questionable hematoma/ abscess of the left lower extremity. Patient is currently on IV Vancomycin. Discussed with Dr. Espinosa and recommended MRI of the left lower extremity to R/ O fluid collection for concern of underlying abscess versus traumatic hematoma. The patient will continue IV Vancomycin pending further workup. We will follow. Provider addendum: Patient reviewed with Ms. Mejía. Agree with above assessment.
--- NOTE | 2017-04-11 13:35 | Progress Note ---
Subjective Date of Service: April 11, 2017. Subjective Pt evaluation today including: conversation w/ patient, physical exam, lab review, conversation w/ [employer] consultant, review of inpatient medication list Pain: still with left leg tenderness PO Intake: adequate Voiding: no voiding problems d/w ID today, they saw leg last week, they feel it looks worse agree that today it actually looks worse compared to yesterday patient feels it is more swollen, more tender, more red no other complaints Review of Systems Constitutional: + fatigue, + weakness Skin: + problem reported (increased redness, increased pain, increased swelling today in left leg) All Other Systems: Reviewed and Negative Medications Current Inpatient Medications Medications (Trade) Dose Ordered Sig/Yahaira Route Start Time Stop Time Status Last Admin Dose Admin Vancomycin HCl (Consult) 1 ea UD PRN N/A 04/07/17 15:45 05/07/17 15:44 Hydromorphone HCl (Dilaudid Inj) 0.5 mg Q3H PRN IV 04/07/17 16:15 04/21/17 16:14 Oxycodone/ Acetaminophen (Percocet 5-325mg Tab) 1 tab Q4H PRN PO 04/07/17 16:15 04/21/17 16:14 04/11/17 13:01 1 TAB Bisacodyl (Dulcolax Tab) 5 mg BID PO 04/07/17 21:00 05/07/17 20:59 04/11/17 08:38 5 MG Polyethylene (Miralax Powder Packet) 17 gm DAILY PO 04/08/17 09:00 05/08/17 08:59 Tramadol HCl 50 mg 50 mg Q4H PRN PO 04/07/17 16:15 05/07/17 16:14 04/10/17 17:10 50 MG Vancomycin HCl/ Sodium Chloride (Vancomycin Inj/ Nss 250ml) 277 ml @ 125 mls/hr Q12H IV 04/08/17 04:00 04/17/17 15:59 04/11/17 04:17 125 MLS/HR Rivaroxaban (Xarelto Tab) 15 mg BID PO 04/09/17 21:00 04/30/17 20:59 04/11/17 08:39 15 MG Objective Vital Signs Date Time Temp Pulse Resp B/P Pulse Ox O2 Delivery O2 Flow Rate FiO2 5/30/17 08:28 92 Room Air 04/11/17 07:57 36.5 60 15 114/72 92 Room Air 04/11/17 07:25 Room Air 04/10/17 23:35 Room Air 04/10/17 22:51 37.0 71 16 125/77 94 Room Air 04/10/17 16:00 Room Air 04/10/17 15:22 37.0 75 18 124/72 96 Room Air Physical Exam General Appearance: WD/WN, no apparent distress Eyes: normal inspection, EOMI, sclerae normal ENT: normal ENT inspection, hearing grossly normal, pharynx normal Neck: supple, no adenopathy, no JVD, trachea midline Respiratory/Chest: chest non-tender, lungs clear, normal breath sounds, no respiratory distress, no accessory muscle use Cardiovascular: regular rate, rhythm, no edema, no gallop, no JVD, no murmur Abdomen: normal bowel sounds, non tender, soft, no organomegaly Extremities: normal range of motion, non-tender, normal inspection, no pedal edema, no calf tenderness Neurologic/Psychiatric: parliamentary archivist II-XII nml as tested, no motor/sensory deficits, alert, normal mood/affect, oriented x 3 Skin: + rash (increased redness, extending beyond borders, more medial, more swelling) Laboratory Results Last 24 Hours Test 04/11/17 06:08 Activated Partial Thromboplast Time 33.4 SECONDS Partial Thromboplastin Ratio 1.3 Creatinine 0.88 mg/dl Est Creatinine Clear Calc Drug Dose 79.9 ml/min Estimated GFR () 84.5 Estimated GFR (Non- 72.9 Assessment and Plan This is a 56 year old female with history of irregular heartbeat, GERD, obesity , LLE DVT on xarelto with development of cellulitis and possible compartment syndrome after a injury sustained on 03/30. She was trying to close her door, and the screen door fell out which caused her to fall, her foot was caught between a cement step and the screen door. She was seen in [place] ER and had no acute fractures at that time. She was scanned and found to have LLE DVT for which she was placed on Xarelto. After concerns of developing compartment syndrome she stopped taking Xarelto and was referred to the orthopedic service by her PCP this morning. She has been admitted under Dr. Jacobsen's service. Medicine has been consulted for LLE cellulitis. 1. LLE Injury, no evidence of compartment syndrome - management per primary team (ortho) - Dr. Caban does not feel surgery would be needed. - Analgesia with Percocet, tramadol 2. DVT LLE - No surgery needed. continue Xarelto 3. Cellulitis LLE - Periwound cellulitis. - worse today, more redness, tenderness and swelling - will check MRI lower extremity without contrast to assess for abscess, fluid collection continue Vancomycin, d/w Isaura Richard with ID 4. Palpitations - denies currently - no significant arrhythmias this far. - Pt has report of palpitations as of March 20 in outpatient f/u for a 2 month timeframe. - Monitor on tele for arrhythmias: pt was on Holter monitor approx 2 weeks ago however it only recorded 7 hours worth. - Outpatient set up scheduled for April 18 to repeat Holter. 5. C/O constipation- Started on PRN dulcolax and miralax scheduled. 6. DVT prophylaxis - JESSICA/SCD on unaffected leg, (right), already on heparin infusion and will switch to Xarelto later. 7. CODE STATUS: FULL CODE 8. Disposition: hold on d/c since it looks worse, check MRI leg Continued [facility] stay due to: multiple IV medications needed Discharge planning: home
[2017-04-11 14:46] VITALS: BP 118/77; PULSE 70; TEMP 36.6; O2SAT 93
--- NOTE | 2017-04-11 14:47 | Orthopedic Progress Note ---
Orthopedic Progress Note Date of Service April 11, 2017. Subjective Additional Notes: PATIENT FEELS LLE IS ACTUALLY LOOKING WORSE TODAY. MRI ORDERED PER MEDICAL SERVICE, NOT YET COMPLETED. Objective calves soft nontender, N/V intact, capillary refill less than 2 sec., A&O x3, toes mobile TRAUMATIC ABRASION LLE WITH BLISTERING AND ERYTHEMA. ERYTHEMA SEEMS TO BE SLIGHTLY OUTSIDE THE PREVIOUS MARKING. NOT ACTIVELY DRAINING ECCHYMOSIS NOTED POSTERIORLY EXTENDING UPWARDS TO THE KNEE. EDEMA NOTED THROUGH THE CALF AND INTO THE ANKLE. Date Time Temp Pulse Resp B/P Pulse Ox O2 Delivery O2 Flow Rate FiO2 04/11/17 08:28 92 Room Air 04/11/17 07:57 36.5 60 15 114/72 92 Room Air 04/11/17 07:25 Room Air 04/10/17 23:35 Room Air 04/10/17 22:51 37.0 71 16 125/77 94 Room Air 04/10/17 16:00 Room Air 04/10/17 15:22 37.0 75 18 124/72 96 Room Air Assessment & Plan Assessment: LLE crush injury with abrasions and superficial cellulitis. Possible hematoma LLE. -MRI ORDERED TO RULE OUT ABSCESS VS HEMATOMA. LLE pain secondary to injury. DVT--started Xarelto last evening.- MAY NEED TO CONSIDER HOLDING PENDING MRI RESULTS CONTINUE IV VANCOMYCIN FOR NOW. Plan: Plan is to continue to monitor patient today so she has a full 24 hours of being on Xarelto to make sure there is no other bleeding issues. Will be able to switch to PO antibiotics today and d/c Vancomycin. Keflex or Bactrim will be the options. WBAT LLE. Pain control. Plan for possible d/c tomorrow, 04.11.17. Discharge Planning Discharge Planning: home
[2017-04-11 15:32] LABS: BASO % 0.1 %; BASO ABS # 0.01 K/uL (0-0.2); COMPLETE YES; EOS % 2.9 %; IG% 0.6 %; LYMPH ABS # 3.59 K/uL (1.2-3.4); MEAN CELL VOLUME 86.7 fL (80-100); MEAN CORPUSCULAR HEMOGLOBIN 28.8 pg (25-34); MEAN CORPUSCULAR HGB CONC 33.3 g/dl (32-36); MONO % 6.3 %; NEUT % 55.1 %; PLATELET COUNT 233 K/uL (130-400); RED BLOOD COUNT 4.96 M/uL (4.2-5.4); WHITE BLOOD COUNT 10.25 K/uL (4.8-10.8)
--- NOTE | 2017-04-11 21:47 | DIAGNOSTIC IMAGING REPORT ---
MRI OF THE LEFT CALF WITHOUT IV CONTRAST CLINICAL HISTORY: Crushing injury. COMPARISON STUDY: No priors. TECHNIQUE: MRI of the left calf is performed using various T1 and T2-weighted sequences in the axial, sagittal, and coronal planes. IV contrast was not administered for this examination. Note that interpretation is suboptimal without plain film correlate. FINDINGS: Normal marrow signal intensity is preserved throughout the visualized tibia and fibula. There is no MRI evidence of fracture. There is diffuse subcutaneous soft tissue edema identified throughout the left calf. There is subcutaneous fluid seen anteriorly. There is a complex fluid collection identified within the anteromedial soft tissues of the left calf. This is deep to the cutaneous marker and measures approximately 9 x 6 x 2.5 cm. This demonstrates foci of internal T1 and T2 hyperintensity. The appearance is most suggestive of hematoma. There is mild intramuscular edema seen within the gastrocnemius musculature. The Achilles tendon is intact as visualized. IMPRESSION: 1. There is no MRI evidence of fracture involving the visualized left tibia and fibula. 2. There is diffuse subcutaneous soft tissue edema identified throughout the imaged left lower extremity. Subcutaneous fluid is also seen. 3. There is a complex collection identified in the anteromedial left calf at the indicated site of interest. The signal characteristics are most suggestive of hematoma. The sterility of this collection cannot be evaluated and abscess is not excluded. Clinical correlation will be essential. Clinical follow-up to resolution is recommended. 4. There is nonspecific edema within the gastrocnemius musculature. This could represent strain versus a nonspecific myositis. Clinical correlation will again be required. Electronically signed by: Marek Paris M.D. 04/11/2017 9:46 PM Dictated Date/Time: 04/11/2017 9:40 PM
[2017-04-11 22:54] VITALS: BP 113/78; PULSE 71; TEMP 36.8; O2SAT 93
[2017-04-12] MEDS: VANCOMYCIN INJ 1,350 MG in SODIUM CHLORIDE 0.9% 250ML 250 ML IV SCH ×2 (03:46→16:25)
[2017-04-12] MEDS: OXYCODONE/ACETAMINOPHEN 5-325 TAB PO PRN ×4 (04:12→21:18)
[2017-04-12 07:04] VITALS: BP 115/71; PULSE 75; TEMP 36.6; O2SAT 93
[2017-04-12 07:32] LABS: HEMATOCRIT 40.6 % (37-47); MEAN CORPUSCULAR HEMOGLOBIN 28.4 pg (25-34); MEAN PLATELET VOLUME 10.8 fL (7.4-10.4); PLATELET COUNT 207 K/uL (130-400); RED BLOOD COUNT 4.72 M/uL (4.2-5.4)
[2017-04-12 07:46] LABS: PARTIAL THROMBOPLASTIN RATIO 1.3
[2017-04-12 08:07] LABS: CREATININE 0.93 mg/dl (0.60-1.20)
[2017-04-12] MEDS: POLYETHYLENE (MIRALAX) 17 GM PACK PO SCH (08:35)
[2017-04-12] MEDS: BISACODYL 5 MG TABEC PO SCH ×2 (08:38→21:00)
--- NOTE | 2017-04-12 08:44 | ORTHOPEDIC PROGRESS NOTE ---
DATE: 04/12/2017 DATE: 04/12/2017. SUBJECTIVE/OBJECTIVE: The patient is a 56-year-old white female who had a crush injury over the weekend and since that time has been admitted for watching for compartment syndrome and recent question of cellulitis and/or an infected hematoma as well as DVT. The patient was recently started on Xarelto on Monday and has been continued on Xarelto since that time and was on IV heparin prior to that. On arrival in her room she is sleeping but easily awoken. The patient appears comfortable and is pleasant and cooperative. She states that overall with her activity of getting out of bed, etc. that her pain control is getting better each day and that she states that with ambulation it is a little less even though she is only putting partial weight on the foot. She feels that the erythema that she has around the abrasion itself is about the same as is over the anterior portion of the tibia. The only major areas of pain that she has right now on palpation are over the spine of the tibia anteriorly near the abrasion itself. The area that is erythematous around the abrasion itself is nontender. She has good dorsiflexion and plantarflexion, strengths of the ankle and has no increased pain with passive dorsiflexion of the foot and over the great toe. Sensation is intact. The areas of erythema to her have not changed and there are areas where have been marked that have shown to minimally encroach those marked areas. MRI was performed last night and shows no fractures. Shows subcutaneous soft tissue edema and a signal characteristics most suggestive of hematoma in the anteromedial calf. ASSESSMENT: Left lower extremity crush injury with abrasions and likely cellulitis, hematoma noted by MRI left lower extremity. Better pain control with left lower extremity injury, DVT. The patient started on Xarelto the previous evening. PLAN: At this point in time, Dr. Jacobsen would like to evaluate the patient later today. He felt that if she was going to need to have the hematoma evacuated due to infection or increasing size that she would have to be off her Xarelto for 48 hours. I discussed this with Dr. Espinosa who has removed her Xarelto from the med list as a precaution to possible surgery. This has been discussed with the patient in detail and she knows that Dr. Jacobsen wants to examine her later this afternoon. She can still continue to be up and ambulating, but discussed that she should just maintain partial to toe touch weightbearing at best and limit her ambulation to no more than 70 feet that she did yesterday. We will plan to continue pain control and continue IV antibiotics and make plans accordingly after Dr. Jacobsen sees her to examine her later this evening. LYNDA
--- NOTE | 2017-04-12 13:49 | Progress Note ---
Subjective Date of Service: April 12, 2017. Subjective Pt evaluation today including: conversation w/ patient, physical exam, lab review, review of studies, conversation w/ senior safety management consultant, review of inpatient medication list Pain: actually pain slightly better PO Intake: adequate Voiding: no voiding problems patient actually feels a little better today, less pain, less throbbing however, more redness and more swelling discussed with Wally Saldana with orthopedics, Dr. Jacobsen will evaluate tonight for need for debridement reviewed results of MRI, large fluid collection, hematoma but could be infected will need to wait 48 hours since last Xarelto dose which was last night, 15mg if she needs surgery, will need to place IVC filter patient okay with this plan Review of Systems Skin: + rash (left leg redness, tender, increased swelling) All Other Systems: Reviewed and Negative Medications Current Inpatient Medications Medications (Trade) Dose Ordered Sig/Yahaira Route Start Time Stop Time Status Last Admin Dose Admin Vancomycin HCl (Consult) 1 ea UD PRN N/A 04/07/17 15:45 05/07/17 15:44 Hydromorphone HCl (Dilaudid Inj) 0.5 mg Q3H PRN IV 04/07/17 16:15 04/21/17 16:14 Oxycodone/ Acetaminophen (Percocet 5-325mg Tab) 1 tab Q4H PRN PO 04/07/17 16:15 04/21/17 16:14 04/12/17 08:38 1 TAB Bisacodyl (Dulcolax Tab) 5 mg BID PO 04/07/17 21:00 05/07/17 20:59 04/12/17 08:38 5 MG Polyethylene (Miralax Powder Packet) 17 gm DAILY PO 04/08/17 09:00 05/08/17 08:59 Tramadol HCl 50 mg 50 mg Q4H PRN PO 04/07/17 16:15 05/07/17 16:14 04/10/17 17:10 50 MG Vancomycin HCl/ Sodium Chloride (Vancomycin Inj/ Nss 250ml) 277 ml @ 125 mls/hr Q12H IV 04/08/17 04:00 04/17/17 15:59 04/12/17 03:46 125 MLS/HR Objective Vital Signs Date Time Temp Pulse Resp B/P Pulse Ox O2 Delivery O2 Flow Rate FiO2 04/12/17 07:40 Room Air 5/31/17 07:04 36.6 75 18 115/71 93 Room Air 04/11/17 23:30 Room Air 04/11/17 22:54 36.8 71 16 113/78 93 Room Air 04/11/17 15:55 Room Air 04/11/17 14:46 36.6 70 16 118/77 93 Room Air Physical Exam General Appearance: WD/WN, no apparent distress Eyes: normal inspection, EOMI, sclerae normal Neck: supple, no adenopathy, no JVD, trachea midline Respiratory/Chest: chest non-tender, lungs clear, normal breath sounds, no respiratory distress, no accessory muscle use Cardiovascular: regular rate, rhythm, no edema, no gallop, no JVD, no murmur Abdomen: normal bowel sounds, non tender, soft, no organomegaly Extremities: normal range of motion, non-tender, normal inspection, no pedal edema, no calf tenderness Neurologic/Psychiatric: caving guide II-XII nml as tested, no motor/sensory deficits, alert, normal mood/affect, oriented x 3 Skin: + pertinent finding (left leg swelling, tender, increased redness, enxtending medially to tibia) Laboratory Results MRI OF THE LEFT CALF WITHOUT IV CONTRAST CLINICAL HISTORY: Crushing injury. COMPARISON STUDY: No priors. TECHNIQUE: MRI of the left calf is performed using various T1 and T2-weighted sequences in the axial, sagittal, and coronal planes. IV contrast was not administered for this examination. Note that interpretation is suboptimal without plain film correlate. FINDINGS: Normal marrow signal intensity is preserved throughout the visualized tibia and fibula. There is no MRI evidence of fracture. There is diffuse subcutaneous soft tissue edema identified throughout the left calf. There is subcutaneous fluid seen anteriorly. There is a complex fluid collection identified within the anteromedial soft tissues of the left calf. This is deep to the cutaneous marker and measures approximately 9 x 6 x 2.5 cm. This demonstrates foci of internal T1 and T2 hyperintensity. The appearance is most suggestive of hematoma. There is mild intramuscular edema seen within the gastrocnemius musculature. The Achilles tendon is intact as visualized. IMPRESSION: 1. There is no MRI evidence of fracture involving the visualized left tibia and fibula. 2. There is diffuse subcutaneous soft tissue edema identified throughout the imaged left lower extremity. Subcutaneous fluid is also seen. 3. There is a complex collection identified in the anteromedial left calf at the indicated site of interest. The signal characteristics are most suggestive of hematoma. The sterility of this collection cannot be evaluated and abscess is not excluded. Clinical correlation will be essential. Clinical follow-up to resolution is recommended. 4. There is nonspecific edema within the gastrocnemius musculature. This could represent strain versus a nonspecific myositis. Clinical correlation will again be required. Last 24 Hours Test 04/11/17 15:20 04/12/17 06:58 White Blood Count 10.25 K/uL 8.20 K/uL Red Blood Count 4.96 M/uL 4.72 M/uL Hemoglobin 14.3 g/dL 13.4 g/dL Hematocrit 43.0 % 40.6 % Mean Corpuscular Volume 86.7 fL 86.0 fL Mean Corpuscular Hemoglobin 28.8 pg 28.4 pg Mean Corpuscular Hemoglobin Concent 33.3 g/dl 33.0 g/dl Platelet Count 233 K/uL 207 K/uL Mean Platelet Volume 11.0 fL 10.8 fL Neutrophils (%) (Auto) 55.1 % Lymphocytes (%) (Auto) 35.0 % Monocytes (%) (Auto) 6.3 % Eosinophils (%) (Auto) 2.9 % Basophils (%) (Auto) 0.1 % Neutrophils # (Auto) 5.64 K/uL Lymphocytes # (Auto) 3.59 K/uL Monocytes # (Auto) 0.65 K/uL Eosinophils # (Auto) 0.30 K/uL Basophils # (Auto) 0.01 K/uL RDW Standard Deviation 42.8 fL 42.6 fL RDW Coefficient of Variation 13.5 % 13.5 % Immature Granulocyte % (Auto) 0.6 % Immature Granulocyte # (Auto) 0.06 K/uL Activated Partial Thromboplast Time 32.7 SECONDS Partial Thromboplastin Ratio 1.3 Creatinine 0.93 mg/dl Est Creatinine Clear Calc Drug Dose 75.6 ml/min Estimated GFR () 79.1 Estimated GFR (Non- 68.2 Assessment and Plan This is a 56 year old female with history of irregular heartbeat, GERD, obesity , LLE DVT on xarelto with development of cellulitis and possible compartment syndrome after a injury sustained on 03/30. She was trying to close her door, and the screen door fell out which caused her to fall, her foot was caught between a cement step and the screen door. She was seen in [place] ER and had no acute fractures at that time. She was scanned and found to have LLE DVT for which she was placed on Xarelto. After concerns of developing compartment syndrome she stopped taking Xarelto and was referred to the orthopedic service by her PCP this morning. She has been admitted under Dr. Jacobsen's service. Medicine has been consulted for LLE cellulitis. 1. LLE Injury, no evidence of compartment syndrome - management per primary team (ortho) - reviewed results of MRI, discussed with ortho - Dr. Jacobsen to evaluate tonight and decide if surgery needed Xarelto on hold, last dose 04/11 evening would need IVC filter if surgery needed, Dr. Marroquin can perform - Analgesia with Percocet, tramadol 2. DVT LLE - hold Xarelto, can place IVC filter if surgery needed 3. Cellulitis LLE - Periwound cellulitis. - redness continues to extend medially and proximally, more swelling today, however, less tender per patient - reviewed results of MRI of leg - fluid collection, hematoma but could be infected continue Vancomycin, d/w Isaura Richard with ID 4. Palpitations - denies currently - no significant arrhythmias this far. - Pt has report of palpitations as of March 20 in outpatient f/u for a 2 month timeframe. - Monitor on tele for arrhythmias: pt was on Holter monitor approx 2 weeks ago however it only recorded 7 hours worth. - Outpatient set up scheduled for April 18 to repeat Holter. 5. C/O constipation- Started on PRN dulcolax and miralax scheduled. 6. DVT prophylaxis - JESSICA/SCD on unaffected leg, (right), already on heparin infusion and will switch to Xarelto later. 7. CODE STATUS: FULL CODE Disposition: evaluate need for surgery, earliest would be Monday for debridement , will likely need home IV antibiotics Continued [facility] stay due to: multiple IV medications needed Discharge planning: home
[2017-04-12 14:58] VITALS: BP 129/78; PULSE 74; TEMP 36.8; O2SAT 95
--- NOTE | 2017-04-12 17:02 | Infectious Disease Progress Nt ---
Progress Note Date of Service April 12, 2017. Subjective Pt evaluation today including: conversation w/ patient, physical exam, chart review, lab review, review of studies, conversation w/ furniture rental consultant, review of inpatient medication list Patient continues to have pain and swelling of the left medial lower extremity. Her lower extremity MRI showed no evidence of fracture in the left lower extremity, but did show diffuse subcutaneous soft tissue edema along with subcutaneous fluid. A complex collection was identified in the anterior medial left calf most suggestive of hematoma, but abscess cannot be ruled. The patient was also noted to have possible myositis of the gastrocnemius. Patient has been continued on IV vancomycin. She is being evaluated by Orthopedics as well. Her blood cultures have continued to show no growth to date. She denies nausea, vomiting, diarrhea, sweats, or chills. I did discuss patient with Dr. Espinosa as well. Her white blood cell count today was 8.20. Her creatinine was stable at 0.93. All Other Systems: Reviewed and Negative Medications Current Inpatient Medications Medications (Trade) Dose Ordered Sig/Yahaira Route Start Time Stop Time Status Last Admin Dose Admin Vancomycin HCl (Consult) 1 ea UD PRN N/A 04/07/17 15:45 05/07/17 15:44 Hydromorphone HCl (Dilaudid Inj) 0.5 mg Q3H PRN IV 04/07/17 16:15 04/21/17 16:14 Oxycodone/ Acetaminophen (Percocet 5-325mg Tab) 1 tab Q4H PRN PO 04/07/17 16:15 04/21/17 16:14 04/12/17 16:25 1 TAB Bisacodyl (Dulcolax Tab) 5 mg BID PO 04/07/17 21:00 05/07/17 20:59 04/12/17 08:38 5 MG Polyethylene (Miralax Powder Packet) 17 gm DAILY PO 04/08/17 09:00 05/08/17 08:59 Tramadol HCl 50 mg 50 mg Q4H PRN PO 04/07/17 16:15 05/07/17 16:14 04/10/17 17:10 50 MG Vancomycin HCl/ Sodium Chloride (Vancomycin Inj/ Nss 250ml) 277 ml @ 125 mls/hr Q12H IV 04/08/17 04:00 04/17/17 15:59 5/31/17 16:25 125 MLS/HR Objective Vital Signs Date Time Temp Pulse Resp B/P Pulse Ox O2 Delivery O2 Flow Rate FiO2 04/12/17 14:58 36.8 74 16 129/78 95 Room Air 04/12/17 07:40 Room Air 04/12/17 07:04 36.6 75 18 115/71 93 Room Air 04/11/17 23:30 Room Air 04/11/17 22:54 36.8 71 16 113/78 93 Room Air Physical Exam General Appearance: WD/WN, no apparent distress Eyes: normal inspection, sclerae normal ENT: hearing grossly normal Neck: supple, trachea midline Respiratory/Chest: no respiratory distress, no accessory muscle use Cardiovascular: regular rate, rhythm Extremities: + pertinent finding (Left lower extremity edema especially in the anterior medial component under the overlying abrasion. Less tenderness today.) Neurologic/Psychiatric: alert, normal mood/affect Skin: warm/dry, no rash, + pertinent finding (Continued mild erythema surrounding her abrasion of the left lower extremity) Laboratory Results MRI OF THE LEFT CALF WITHOUT IV CONTRAST CLINICAL HISTORY: Crushing injury. COMPARISON STUDY: No priors. TECHNIQUE: MRI of the left calf is performed using various T1 and T2-weighted sequences in the axial, sagittal, and coronal planes. IV contrast was not administered for this examination. Note that interpretation is suboptimal without plain film correlate. FINDINGS: Normal marrow signal intensity is preserved throughout the visualized tibia and fibula. There is no MRI evidence of fracture. There is diffuse subcutaneous soft tissue edema identified throughout the left calf. There is subcutaneous fluid seen anteriorly. There is a complex fluid collection identified within the anteromedial soft tissues of the left calf. This is deep to the cutaneous marker and measures approximately 9 x 6 x 2.5 cm. This demonstrates foci of internal T1 and T2 hyperintensity. The appearance is most suggestive of hematoma. There is mild intramuscular edema seen within the gastrocnemius musculature. The Achilles tendon is intact as visualized. IMPRESSION: 1. There is no MRI evidence of fracture involving the visualized left tibia and fibula. 2. There is diffuse subcutaneous soft tissue edema identified throughout the imaged left lower extremity. Subcutaneous fluid is also seen. 3. There is a complex collection identified in the anteromedial left calf at the indicated site of interest. The signal characteristics are most suggestive of hematoma. The sterility of this collection cannot be evaluated and abscess is not excluded. Clinical correlation will be essential. Clinical follow-up to resolution is recommended. 4. There is nonspecific edema within the gastrocnemius musculature. This could represent strain versus a nonspecific myositis. Clinical correlation will again be required. Item Value Date Time Blood Culture - Preliminary Resulted 04/07/17 1520 Blood NO GROWTH TO DATE. Blood Culture - Preliminary Resulted 04/07/17 1515 Blood NO GROWTH TO DATE. Last 24 Hours Test 04/12/17 06:58 White Blood Count 8.20 K/uL Red Blood Count 4.72 M/uL Hemoglobin 13.4 g/dL Hematocrit 40.6 % Mean Corpuscular Volume 86.0 fL Mean Corpuscular Hemoglobin 28.4 pg Mean Corpuscular Hemoglobin Concent 33.0 g/dl RDW Standard Deviation 42.6 fL RDW Coefficient of Variation 13.5 % Platelet Count 207 K/uL Mean Platelet Volume 10.8 fL Activated Partial Thromboplast Time 32.7 SECONDS Partial Thromboplastin Ratio 1.3 Creatinine 0.93 mg/dl Est Creatinine Clear Calc Drug Dose 75.6 ml/min Estimated GFR () 79.1 Estimated GFR (Non- 68.2 Assessment and Plan Patient with traumatic abrasion of the left lower extremity with left lower extremity DVT with left lower extremity cellulitis along with probable underlying hematoma verses abscess. Would recommend that this patient have some fluid collected from this area or drainage of this area due to very slow healing. Will continue IV vancomycin pending further workup. Please culture any fluid findings. PROVIDER ADDENDUM: Patient reviewed with Ms. Mejía. Agree with above assessment.
--- NOTE | 2017-04-12 19:11 | Progress Note ---
Orthopedic SOAP Note Subjective Date of Service: April 12, 2017. Additional Notes: in general feels improvement since stopped xerelto and rest Objective fluid collection with some fluctuance below abrasion c/w hematoma seroma , 6cm x 2.5 cm by mri between fascia and fat. Date Time Temp Pulse Resp B/P Pulse Ox O2 Delivery O2 Flow Rate FiO2 04/12/17 14:58 36.8 74 16 129/78 95 Room Air 04/12/17 07:40 Room Air 04/12/17 07:04 36.6 75 18 115/71 93 Room Air 04/11/17 23:30 Room Air 04/11/17 22:54 36.8 71 16 113/78 93 Room Air Laboratory Results 24 Hours: Test 04/12/17 06:58 Hematocrit 40.6 % Hemoglobin 13.4 g/dL Assessment LLE crush injury with abrasions and superficial cellulitis. hematoma and seroma may not be infected,celulitis may be traumatic and not infectious, DVT. CONTINUE IV VANCOMYCIN FOR NOW. hold xerelto so can aspirate collection if strongly desired by infectious disease , if not infected hematoma there is risk of creating infection with aspiration despite sterile technique. patien unlikely to get a compartment syndrme due to location of hematoma extrafascial. will discuss . Plan plan hold xerelto ,reevaluate tomorrow and possible aspiration ,if hematoma ultimately drained then would recommend vena cava filter prior to procedure in case tourniquet used during procedure to control bleeding.
[2017-04-12 23:00] VITALS: BP 117/77; PULSE 80; TEMP 36.9; O2SAT 93
[2017-04-12] MEDS: TRAMADOL HCL 50 MG TAB PO PRN (23:23)
[2017-04-13] MEDS ORDERED: VANCOMYCIN TROUGH SCH (03:30)
[2017-04-13] MEDS: VANCOMYCIN INJ 1,350 MG in SODIUM CHLORIDE 0.9% 250ML 250 ML IV SCH (04:09)
[2017-04-13 07:13] VITALS: BP 119/74; PULSE 66; TEMP 36.5; O2SAT 95
[2017-04-13 07:27] LABS: PARTIAL THROMBOPLASTIN RATIO 1.1
[2017-04-13 07:37] LABS: CREATININE 0.9 mg/dl (0.60-1.20)
[2017-04-13] MEDS: OXYCODONE/ACETAMINOPHEN 5-325 TAB PO PRN ×3 (07:38→19:10)
--- NOTE | 2017-04-13 08:12 | Orthopedic Progress Note ---
Orthopedic Progress Note Date of Service Apr 13, 2017. Subjective Reports: feeling well, calf pain, pain controlled w PO medications, Denies: complaints, chest pain, SOB, nausea / vomiting, light headedness Objective N/V intact, capillary refill less than 2 sec., A&O x3, toes mobile Continued abrasion with surrounding erythema Left LE. Ecchymosis and bruising diffusely. Patient able to plantarflex and dorsiflex actively without pain. PROM of toes without pain. Calf supple, distal pulses in tact, NO signs of compartment syndrome. Date Time Temp Pulse Resp B/P (MAP) Pulse Ox O2 Delivery O2 Flow Rate FiO2 04/13/17 07:13 36.5 66 19 119/74 (89) 95 Room Air 04/12/17 23:20 Room Air 04/12/17 23:00 36.9 80 16 117/77 (90) 93 Room Air 04/12/17 16:45 Room Air 04/12/17 14:58 36.8 74 16 129/78 (95) 95 Room Air Assessment & Plan Assessment: LLE crush injury with abrasions and superficial cellulitis. hematoma and seroma may not be infected,cellulitis may be traumatic and not infectious. DVT. CONTINUE IV VANCOMYCIN FOR NOW. Hold xerelto so can aspirate collection if strongly desired by infectious disease , if not infected hematoma there is risk of creating infection with aspiration despite sterile technique. Patient unlikely to get a compartment syndrome due to location of hematoma extrafascial. will discuss . Plan: plan hold xerelto ,reevaluate today per Dr. Jacobsen/ ID and possible aspiration ,if hematoma ultimately drained then would recommend vena cava filter prior to procedure in case tourniquet used during procedure to control bleeding. Discharge Planning Discharge Planning: home
[2017-04-13] MEDS: POLYETHYLENE (MIRALAX) 17 GM PACK PO SCH (09:00)
[2017-04-13] MEDS: BISACODYL 5 MG TABEC PO SCH ×2 (09:15→21:25)
--- NOTE | 2017-04-13 10:10 | Progress Note ---
Subjective Date of Service: Apr 13, 2017. Subjective Pt evaluation today including: conversation w/ patient, physical exam, lab review, conversation w/ behavioral consultant, review of inpatient medication list Pain: less pain today PO Intake: adequate Voiding: no voiding problems left leg actually a little better today, less pain, less redness eating well no chest pain and no shortness of breath Review of Systems Skin: + rash (left left, redness and tenderness) All Other Systems: Reviewed and Negative Medications Current Inpatient Medications Medications (Trade) Dose Ordered Sig/Yahaira Route Start Time Stop Time Status Last Admin Dose Admin Vancomycin HCl (Consult) 1 ea UD PRN N/A 04/07/17 15:45 05/07/17 15:44 Hydromorphone HCl (Dilaudid Inj) 0.5 mg Q3H PRN IV 04/07/17 16:15 04/21/17 16:14 Oxycodone/ Acetaminophen (Percocet 5-325mg Tab) 1 tab Q4H PRN PO 04/07/17 16:15 04/21/17 16:14 04/13/17 07:38 1 TAB Bisacodyl (Dulcolax Tab) 5 mg BID PO 04/07/17 21:00 05/07/17 20:59 04/13/17 09:15 5 MG Polyethylene (Miralax Powder Packet) 17 gm DAILY PO 04/08/17 09:00 05/08/17 08:59 Tramadol HCl (Ultram Tab) 50 mg Q4H PRN PO 04/07/17 16:15 05/07/17 16:14 04/12/17 23:23 50 MG Vancomycin HCl 1350 mg/Sodium Chloride 277 ml @ 125 mls/hr Q14H IV 04/13/17 18:00 04/17/17 15:59 Objective Vital Signs Date Time Temp Pulse Resp B/P (MAP) Pulse Ox O2 Delivery O2 Flow Rate FiO2 04/13/17 07:13 36.5 66 19 119/74 (89) 95 Room Air 04/12/17 23:20 Room Air 04/12/17 23:00 36.9 80 16 117/77 (90) 93 Room Air 04/12/17 16:45 Room Air 04/12/17 14:58 36.8 74 16 129/78 (95) 95 Room Air Physical Exam General Appearance: WD/WN, no apparent distress Eyes: normal inspection, EOMI, sclerae normal Neck: supple, no adenopathy, no JVD, trachea midline Respiratory/Chest: chest non-tender, lungs clear, normal breath sounds, no respiratory distress, no accessory muscle use Cardiovascular: regular rate, rhythm, no edema, no gallop, no JVD, no murmur Abdomen: normal bowel sounds, non tender, soft, no organomegaly Extremities: normal range of motion, no pedal edema, no calf tenderness, + pertinent finding (left leg tenderness, redness, less warmth) Neurologic/Psychiatric: air conditioning equipment mechanic II-XII nml as tested, no motor/sensory deficits, alert, normal mood/affect, oriented x 3 Skin: + rash (improving overall, less swelling, less redness) Laboratory Results Last 24 Hours Test 04/13/17 03:30 04/13/17 06:49 Vancomycin Level Trough 21.7 mcg/ml Activated Partial Thromboplast Time 28.0 SECONDS Partial Thromboplastin Ratio 1.1 Creatinine 0.90 mg/dl Est Creatinine Clear Calc Drug Dose 78.1 ml/min Estimated GFR () 82.3 Estimated GFR (Non- 71.0 Assessment and Plan This is a 56 year old female with history of irregular heartbeat, GERD, obesity , LLE DVT on xarelto with development of cellulitis and possible compartment syndrome after a injury sustained on 03/30. She was trying to close her door, and the screen door fell out which caused her to fall, her foot was caught between a cement step and the screen door. She was seen in [place] ER and had no acute fractures at that time. She was scanned and found to have LLE DVT for which she was placed on Xarelto. After concerns of developing compartment syndrome she stopped taking Xarelto and was referred to the orthopedic service by her PCP this morning. She has been admitted under Dr. Jacobsen's service. Medicine has been consulted for LLE cellulitis. 1. LLE Injury, no evidence of compartment syndrome - management per primary team (ortho) - reviewed results of MRI on 04/11, discussed with ortho on 04/12 - Dr. Jacobsen evaluated on 04/12, hesitant to drain the hematoma because if isn' t infected could cause infection by placing needle through skin he is going to re-evaluate today 2. DVT LLE - hold Xarelto, can place IVC filter if surgery needed - resume Xarelto on discharge once decision made on surgery or not 3. Cellulitis LLE - Periwound cellulitis. actually looking better today, redness receding, less pain, less warmth - reviewed results of MRI of leg - fluid collection, hematoma but could be infected continue Vancomycin, d/w Isaura Richard with ID 4. Palpitations - denies currently - no significant arrhythmias this far. - Pt has report of palpitations as of March 20 in outpatient f/u for a 2 month timeframe. - Monitor on tele for arrhythmias: pt was on Holter monitor approx 2 weeks ago however it only recorded 7 hours worth. - Outpatient set up scheduled for April 18 to repeat Holter. 5. C/O constipation- Started on PRN dulcolax and miralax scheduled, constipation resolved 6. DVT prophylaxis - JESSICA/SCD on unaffected leg, (right), holding Xarelto currently 7. CODE STATUS: FULL CODE medicine will sign off at this time since the acute issue is being managed by ID and orthopedic surgery please call for any new acute issues or questions Dr. Espinosa [phone]
--- NOTE | 2017-04-13 10:25 | Pharmacy Progress Note ---
Pharmacy Abx Dose Progress Nt Date of Service Apr 13, 2017. Pharmacy Dosing Scope The patient is currently receiving the following antimicrobial agents per Pharmacy consult: Vancomycin 1350 mg IV every 12 hours Objective Height (Feet): 5 Height (Inches): 6.00 Weight (Kilograms): 90.450 Vital Signs (Past 12Hrs) Vital Signs Past 12 Hours Date Time Temp Pulse Resp B/P (MAP) Pulse Ox O2 Delivery O2 Flow Rate FiO2 04/13/17 07:13 36.5 66 19 119/74 (89) 95 Room Air 04/12/17 23:20 Room Air 04/12/17 23:00 36.9 80 16 117/77 (90) 93 Room Air Lab Results (24Hrs) Test 04/13/17 03:30 04/13/17 06:49 Vancomycin Level Trough 21.7 mcg/ml (SEE COMMENT) Activated Partial Thromboplast Time 28.0 SECONDS (21.0-31.0) Partial Thromboplastin Ratio 1.1 Creatinine 0.90 mg/dl (0.60-1.20) Est Creatinine Clear Calc Drug Dose 78.1 ml/min Estimated GFR () 82.3 Estimated GFR (Non- 71.0 Micro Results Date/Time Source Procedure Growth Status 04/07/17 15:20 Blood Blood Culture - Final NO GROWTH Complete 04/07/17 15:15 Blood Blood Culture - Final NO GROWTH Complete Assessment & Plan Assessment 56 year old female receiving vancomycin for treatment of LLE cellulitis with underlying hematoma vs abscess Day # 7/10 of antimicrobial therapy ID recommending to continue IV abx due to slow improvement Plan Vancomycin IV * Trough level of 21.7 mcg/mL is supratherapeutic. * Change to 1350 mg IV every 14 hours * Goal trough level for cellulitis w/ possible abscess : 15 to 20 mcg/mL * Trough level ordered for: 04/16/17 prior to the 0200 dose Pharmacy will continue to follow and will adjust dose/frequency as necessary. Thank you.
--- NOTE | 2017-04-13 11:25 | Infectious Disease Progress Nt ---
Progress Note Date of Service Apr 13, 2017. Subjective Pt evaluation today including: conversation w/ patient, physical exam, chart review, lab review, review of studies, review of inpatient medication list Patient is feeling slightly improved today. She feels that the swelling is slightly less. She continues to have sharp on an off pain, but it is tolerable at this point. Her creatinine today was 0.90. A repeat left lower extremity venous Doppler showed nonocclusive DVT within the left posterior tibial vein and re-demonstration of the complex subcutaneous fluid collection the anterior medial left leg. Orthopedic recommendations were reviewed. Feel that aspiration of the fluid collection may risk further infection. The patient is currently tolerating IV vancomycin well. She has not had any sweats, chills, nausea, vomiting, or diarrhea. All Other Systems: Reviewed and Negative Medications Current Inpatient Medications Medications (Trade) Dose Ordered Sig/Yahaira Route Start Time Stop Time Status Last Admin Dose Admin Hydromorphone HCl (Dilaudid Inj) 0.5 mg Q3H PRN IV 04/07/17 16:15 04/21/17 16:14 Oxycodone/ Acetaminophen (Percocet 5-325mg Tab) 1 tab Q4H PRN PO 04/07/17 16:15 04/21/17 16:14 04/13/17 13:48 1 TAB Bisacodyl (Dulcolax Tab) 5 mg BID PO 04/07/17 21:00 05/07/17 20:59 04/13/17 09:15 5 MG Polyethylene (Miralax Powder Packet) 17 gm DAILY PO 04/08/17 09:00 05/08/17 08:59 Tramadol HCl (Ultram Tab) 50 mg Q4H PRN PO 04/07/17 16:15 05/07/17 16:14 04/13/17 11:29 50 MG Daptomycin 360 mg/ Sodium Chloride 57.2 ml @ 100 mls/hr DAILY@1100 IV 04/13/17 12:00 04/28/17 08:59 04/13/17 13:50 100 MLS/HR Objective Vital Signs Date Time Temp Pulse Resp B/P (MAP) Pulse Ox O2 Delivery O2 Flow Rate FiO2 04/13/17 08:00 Room Air 04/13/17 07:13 36.5 66 19 119/74 (89) 95 Room Air 04/12/17 23:20 Room Air 04/12/17 23:00 36.9 80 16 117/77 (90) 93 Room Air 04/12/17 16:45 Room Air 04/12/17 14:58 36.8 74 16 129/78 (95) 95 Room Air Physical Exam General Appearance: WD/WN, no apparent distress Eyes: normal inspection, sclerae normal ENT: hearing grossly normal Neck: supple, trachea midline Respiratory/Chest: no respiratory distress, no accessory muscle use Cardiovascular: regular rate, rhythm Extremities: + pertinent finding (Continued moderate edema of the left medial/ anterior lower extremity. Continued mild tenderness today. Erythema appears slightly improved.) Neurologic/Psychiatric: alert, normal mood/affect Skin: warm/dry, no rash Laboratory Results LEFT LOWER EXTREMITY VENOUS DOPPLER CLINICAL HISTORY: Evaluate location of DVT COMPARISON STUDY: Left lower extremity MRI April 11, 2017. TECHNIQUE: Sonography of the deep venous system of the left lower extremity was performed. Compression and augmentation were evaluated. FINDINGS: The left common femoral, superficial femoral and popliteal veins are patent. There is nonocclusive thrombus within the left posterior tibial vein. There is also a complex 8 x 2.5 x 4.3 cm fluid collection within the subcutaneous tissues of the anterior medial aspect of the left lower leg which corresponds to the fluid collection shown on MRI of April 11, 2017. IMPRESSION: 1. Nonocclusive deep venous thrombus within the left posterior tibial vein. 2. Redemonstration of the complex subcutaneous fluid collection of the anteromedial aspect of the left lower leg. This collection measures 8 x 2.5 x 4.3 cm and is similar to MRI of April 11, 2017. Item Value Date Time Blood Culture - Final Complete 04/07/17 1520 Blood NO GROWTH Blood Culture - Final Complete 04/07/17 1515 Blood NO GROWTH Last 24 Hours Test 04/13/17 03:30 04/13/17 06:49 Vancomycin Level Trough 21.7 mcg/ml Activated Partial Thromboplast Time 28.0 SECONDS Partial Thromboplastin Ratio 1.1 Creatinine 0.90 mg/dl Est Creatinine Clear Calc Drug Dose 78.1 ml/min Estimated GFR () 82.3 Estimated GFR (Non- 71.0 Assessment and Plan Patient with traumatic abrasion of the left lower extremity with left lower extremity DVT with left lower extremity cellulitis along with probable underlying hematoma verses abscess. Ortho feels that the possibility of introducing infection may outweigh the benefit of drainage of the patient's fluid collection. Her leg does appear to be very slightly improved today. Therefore, could also continue the patient on IV abx therapy at home for at least 2 more weeks and follow as an outpatient for improvement. If her symptoms would happen to worsen, she ultimately will require drainage. We can follow along as outpatient as well. Will change from IV Vancomycin to Daptomycin for ease of use as outpatient. Patient will also require a PICC line. PROVIDER ADDENDUM: PATIENT REVIEWED WITH MS. LACKEY. AGREE WITH ABOVE ASSESSMENT.
[2017-04-13] MEDS: TRAMADOL HCL 50 MG TAB PO PRN ×2 (11:29→21:28)
--- NOTE | 2017-04-13 12:13 | DIAGNOSTIC IMAGING REPORT ---
LEFT LOWER EXTREMITY VENOUS DOPPLER CLINICAL HISTORY: Evaluate location of DVT COMPARISON STUDY: Left lower extremity MRI April 11, 2017. TECHNIQUE: Sonography of the deep venous system of the left lower extremity was performed. Compression and augmentation were evaluated. FINDINGS: The left common femoral, superficial femoral and popliteal veins are patent. There is nonocclusive thrombus within the left posterior tibial vein. There is also a complex 8 x 2.5 x 4.3 cm fluid collection within the subcutaneous tissues of the anterior medial aspect of the left lower leg which corresponds to the fluid collection shown on MRI of April 11, 2017. IMPRESSION: 1. Nonocclusive deep venous thrombus within the left posterior tibial vein. 2. Redemonstration of the complex subcutaneous fluid collection of the anteromedial aspect of the left lower leg. This collection measures 8 x 2.5 x 4.3 cm and is similar to MRI of April 11, 2017. Electronically signed by: Oscar Hernandez M.D. 04/13/2017 12:12 PM Dictated Date/Time: 04/13/2017 12:07 PM
[2017-04-13] MEDS: DAPTOmycin IV 360 MG in SODIUM CHLORIDE 0.9% 50ML 50 ML IV SCH (13:50)
[2017-04-13 15:40] VITALS: BP 122/77; PULSE 77; TEMP 36.8; O2SAT 98
[2017-04-13 16:13] LABS: FLUID APPEARANCE BLOODY; FLUID RBC (A) < 3000 /uL
[2017-04-13 16:24] LABS: FLUID MONONUC 15.9 %; FLUID POLYNUC 84.1 %
[2017-04-13 16:40] LABS: FLUID WBC (A) 38750 /uL
--- NOTE | 2017-04-13 17:07 | ORTHOPEDICS PROGRESS NOTE ---
DATE: 04/13/2017 SUBJECTIVE: The patient is seen in followup for left leg crush injury with history of anticoagulation use with compartment syndrome ruled out with hematoma by MRI about 8 x 4 cm proximally on the latest ultrasound. Recent ultrasound also showed a blood clot in the posterior tibial vein which was not completely occluded, no involvement of the popliteal vein was identified. Her white count is decreased to 8 at this time. She is afebrile. Discussed with infectious disease they would desire an aspirate if possible of the hematoma, to help decide in management. PHYSICAL EXAMINATION: Demonstrates she has an abrasion with some fracture blisters over the medial pretibial area lower third tibia. Distal neurological exam is intact. She has no pain on passive range of motion. No evidence of any compartment syndrome. Compartments are soft around the calf, otherwise. She does have fluctuance over the area of the hematoma and one of the fracture blisters was already ruptured was no pus and draining some bloody type clear fluid. ASSESSMENT: Hematoma due to crush injury past the point where we would worry about compartment syndrome and the bleeding appears to be extracapsular, so would not be at risk for compartment syndrome and restarting anticoagulants at this point. She has been off the Xarelto for close to 48 hours now, so I felt comfortable aspirating the hematoma. We did discuss the potential risk of getting an infection in a previously sterile area, but she has been on IV antibiotics at this point, and we did sterilely prep the calf area around the abrasion and hematoma first with a Hibiclens scrub and then dry that with a sterile gauze and then painted with ChloraPrep and allowed that to dry appropriately and then used ethyl chloride to help anesthetize the skin and placed a 14 gauge needle into the hematoma and we were able to easily aspirate 30 mL of fluid which looked like just bloody seroma, no cloudiness, no signs of infection. This decompressed her hematoma significantly. This fluid was sent for Gram stain, C&S, cell count. I also unroofed one of the blisters and we cultured under that blister with a swab type culture and then we debrided the fracture blisters with scissors and just hand manipulation with a sterile gauze and underlying skin there was no evidence of any significant full thickness skin loss at all and then we went ahead and placed a Xeroform dressing with sterile gauze and Yumi and an Luther wrap about her left lower extremity. We feel the patient can resume her anticoagulants tomorrow, if medical team choose to place back on Xarelto should be able to be placed back on Xarelto tomorrow for her DVT. LYNDA
[2017-04-13] MEDS ORDERED: VANCOMYCIN INJ 1,350 MG in SODIUM CHLORIDE 0.9% 250ML 250 ML IV SCH (18:00)
[2017-04-13 22:57] VITALS: BP 112/65; PULSE 80; TEMP 36.6; O2SAT 95
[2017-04-14] MEDS: OXYCODONE/ACETAMINOPHEN 5-325 TAB PO PRN ×3 (00:09→18:08)
[2017-04-14 06:57] LABS: HEMATOCRIT 41.4 % (37-47); MEAN CELL VOLUME 86.6 fL (80-100); MEAN CORPUSCULAR HGB CONC 32.4 g/dl (32-36); MEAN PLATELET VOLUME 10.7 fL (7.4-10.4); PLATELET COUNT 223 K/uL (130-400); RED BLOOD COUNT 4.78 M/uL (4.2-5.4); WHITE BLOOD COUNT 8.34 K/uL (4.8-10.8)
[2017-04-14 07:02] VITALS: BP 133/80; PULSE 65; TEMP 36.7; O2SAT 95
[2017-04-14 07:18] LABS: PARTIAL THROMBOPLASTIN RATIO 1.1
[2017-04-14] MEDS: POLYETHYLENE (MIRALAX) 17 GM PACK PO SCH (07:35)
[2017-04-14] MEDS: BISACODYL 5 MG TABEC PO SCH ×2 (07:36→20:39)
--- NOTE | 2017-04-14 08:11 | Orthopedic Progress Note ---
Orthopedic Progress Note Date of Service Apr 14, 2017. Subjective Reports: feeling well, pain controlled w PO medications, Denies: complaints, chest pain, SOB, nausea / vomiting, light headedness, calf pain Additional Notes: asperation gram stain no organisms, cx pending surface wound gram stain and cx pending. Objective calves soft nontender, N/V intact, capillary refill less than 2 sec., dressing C /D/I, A&O x3, toes mobile Date Time Temp Pulse Resp B/P (MAP) Pulse Ox O2 Delivery O2 Flow Rate FiO2 04/14/17 07:02 36.7 65 16 133/80 (97) 95 Room Air 04/13/17 23:59 Room Air 04/13/17 22:57 36.6 80 16 112/65 (81) 95 Room Air 04/13/17 16:30 Room Air 04/13/17 15:40 36.8 77 18 122/77 (92) 98 Room Air Laboratory Results 24 Hours: Test 04/14/17 06:45 Hematocrit 41.4 % Hemoglobin 13.4 g/dL Assessment & Plan Assessment: LLE crush injury with abrasions and superficial cellulitis. hematoma and seroma may not be infected,cellulitis may be traumatic and not infectious. DVT. Changed to IV daptomycin Aspiration and wound surface cxs obtained yesterday, await final growths and ID input. OK to restart Xarelto today. Discharge Planning Discharge Planning: home
[2017-04-14] MEDS: RIVAROXABAN TAB 15 MG TAB PO SCH ×2 (09:51→20:39)
--- NOTE | 2017-04-14 11:41 | Infectious Disease Progress Nt ---
Progress Note Date of Service Apr 14, 2017. Subjective Pt evaluation today including: conversation w/ patient, physical exam, chart review, lab review, review of studies, conversation w/ residential property consultant (Jose L Draper PA-C), review of inpatient medication list Patient's white blood cell count this morning was 8.34. She states that she is very fatigued today, and she continues to have sharp pain on an off in her left medial lower extremity. The patient did have an aspiration completed of the fluid collection on the left medial anterior lower extremity. The fluid revealed 38,750 white blood cells and less than 3000 red blood cells. The Gram stain from her aspirate is showing no organisms, but many white blood cells. The patient continues on IV daptomycin and is tolerating this medication well. She ultimately would like to stay in the hospital pending her culture result. I previously discussed IV antibiotic therapy with this patient, and she is agreeable if it is felt she needs it. She does not have a PICC line yet. She did have a repeat venous Doppler of the left lower extremity which showed re- demonstration of the complex subcutaneous fluid collection of the left lower leg along with a nonocclusive DVT within the left posterior tibial vein. All Other Systems: Reviewed and Negative Medications Current Inpatient Medications Medications (Trade) Dose Ordered Sig/Yahaira Route Start Time Stop Time Status Last Admin Dose Admin Hydromorphone HCl (Dilaudid Inj) 0.5 mg Q3H PRN IV 04/07/17 16:15 04/21/17 16:14 Oxycodone/ Acetaminophen (Percocet 5-325mg Tab) 1 tab Q4H PRN PO 04/07/17 16:15 04/21/17 16:14 04/14/17 09:52 1 TAB Bisacodyl (Dulcolax Tab) 5 mg BID PO 04/07/17 21:00 05/07/17 20:59 04/14/17 07:36 5 MG Polyethylene (Miralax Powder Packet) 17 gm DAILY PO 04/08/17 09:00 05/08/17 08:59 Tramadol HCl (Ultram Tab) 50 mg Q4H PRN PO 04/07/17 16:15 05/07/17 16:14 04/13/17 21:28 50 MG Daptomycin 360 mg/ Sodium Chloride 57.2 ml @ 100 mls/hr DAILY@1100 IV 04/13/17 12:00 04/28/17 08:59 04/14/17 12:17 100 MLS/HR Rivaroxaban (Xarelto Tab) 15 mg BID PO 04/14/17 10:00 05/04/17 21:01 04/14/17 09:51 15 MG Objective Vital Signs Date Time Temp Pulse Resp B/P (MAP) Pulse Ox O2 Delivery O2 Flow Rate FiO2 04/14/17 07:25 Room Air 04/14/17 07:02 36.7 65 16 133/80 (97) 95 Room Air 04/13/17 23:59 Room Air 04/13/17 22:57 36.6 80 16 112/65 (81) 95 Room Air 04/13/17 16:30 Room Air 04/13/17 15:40 36.8 77 18 122/77 (92) 98 Room Air Physical Exam General Appearance: WD/WN, no apparent distress Eyes: normal inspection, sclerae normal ENT: hearing grossly normal Neck: supple, trachea midline Respiratory/Chest: no respiratory distress, no accessory muscle use Cardiovascular: regular rate, rhythm Extremities: + pertinent finding (Left lower extremity with Luther bandage in place. C/D/I.) Neurologic/Psychiatric: alert, normal mood/affect Skin: normal color, warm/dry, no rash Laboratory Results RUN DATE: 04/14/17 [facility] PAGE 1 RUN TIME: 0742 Specimen Inquiry PATIENT: FUNMI BUENO LOC: [facility] U # : [id number] AGE/SX: 56/F ROOM: [facility] REG : 04/07/[address]: Fred Jacobsen M.D. : 1960 BED: 2 DIS : STATUS: ADM IN TLOC: SPEC #: [id number] HOWARD: 04/13/17 STATUS: RES REQ #: [id number] RECD: 04/13/[address]: Fred Jacobsen M.D. SOURCE: ASP-OTHER ENTR: 04/13/[address] [facility] DR: Jesús Thompson M.D. SPDESC: LEG Vinny Ortiz M.D. Patterson, Jennifer., D.O. Simoni, Eugene J., M.D. ORDERED: ЕКАТЕРИНА ALONZO Procedure Result Verified Site GRAM STAIN Final 04/14/17 RESULT MANY WBCs SEEN NO ORGANISMS SEEN DEEP WOUND CULTURE PENDING Item Value Date Time Gram Stain - Final Resulted 04/13/17 1522 Aspirate - Other Leg Lower Left Gram Stain - Final Resulted 04/13/17 0000 Cellulitis Leg Lower Left Last 24 Hours Test 04/14/17 06:45 White Blood Count 8.34 K/uL Red Blood Count 4.78 M/uL Hemoglobin 13.4 g/dL Hematocrit 41.4 % Mean Corpuscular Volume 86.6 fL Mean Corpuscular Hemoglobin 28.0 pg Mean Corpuscular Hemoglobin Concent 32.4 g/dl RDW Standard Deviation 42.9 fL RDW Coefficient of Variation 13.5 % Platelet Count 223 K/uL Mean Platelet Volume 10.7 fL Activated Partial Thromboplast Time 27.3 SECONDS Partial Thromboplastin Ratio 1.1 Assessment and Plan Patient with traumatic abrasion of the left lower extremity with left lower extremity DVT with left lower extremity cellulitis along with underlying septic hematoma. Aspirate culture from fluid collection is pending, but gram stain showing many WBC's and 38,000 WBCs and many RBC's seen on fluid analysis. This is consistent with probable septic hematoma. At this time, the patient would prefer to wait for culture result, but despite culture result, feel that she likely would benefit from IV abx therapy for at least 7-14 more days pending improvement. Daptomycin is appropriate unless her culture grows something not covered with Daptomycin. We will continue to follow along, but if the patient is discharged over the weekend, would like to follow up with her in the office prior to discontinuation of abx therapy to determine length of treatment. PROVIDER ADDENDUM: Patient reviewed with Ms. Mejía. Agree with above assessment.
[2017-04-14] MEDS: DAPTOmycin IV 360 MG in SODIUM CHLORIDE 0.9% 50ML 50 ML IV SCH (12:17)
[2017-04-14 15:02] VITALS: BP 135/81; PULSE 74; TEMP 36.7; O2SAT 94
[2017-04-14 22:50] VITALS: BP 130/81; PULSE 79; TEMP 37; O2SAT 95
[2017-04-15] MEDS: OXYCODONE/ACETAMINOPHEN 5-325 TAB PO PRN ×3 (00:19→13:17)
[2017-04-15 07:11] VITALS: BP 120/82; PULSE 71; TEMP 36.6; O2SAT 94
[2017-04-15 07:44] LABS: PARTIAL THROMBOPLASTIN RATIO 1.4
[2017-04-15] MEDS: RIVAROXABAN TAB 15 MG TAB PO SCH (08:08)
[2017-04-15] MEDS: BISACODYL 5 MG TABEC PO SCH (08:09)
[2017-04-15] MEDS: POLYETHYLENE (MIRALAX) 17 GM PACK PO SCH (08:09)
[2017-04-15] MEDS: DAPTOmycin IV 360 MG in SODIUM CHLORIDE 0.9% 50ML 50 ML IV SCH (11:33)
--- NOTE | 2017-04-15 11:43 | Orthopedic Progress Note ---
Orthopedic Progress Note Date of Service Apr 15, 2017. Objective N/V intact, dressing C/D/I, toes mobile Date Time Temp Pulse Resp B/P (MAP) Pulse Ox O2 Delivery O2 Flow Rate FiO2 04/15/17 08:09 Room Air 04/15/17 07:11 36.6 71 16 120/82 (95) 94 Room Air 04/14/17 22:50 37.0 79 16 130/81 (97) 95 Room Air 04/14/17 20:40 Room Air 04/14/17 16:15 Room Air 04/14/17 15:02 36.7 74 18 135/81 (99) 94 Room Air Assessment & Plan Assessment: LLE crush injury with abrasions and superficial cellulitis. hematoma and seroma may not be infected,cellulitis may be traumatic and not infectious. DVT. Changed to IV daptomycin No growth on culture Plan: 1. Med management- pt declining PICC line, d/w pt, understands risk of infection. Spoke w/ Zonia Mejía PA-C, will d/c on po Bactrim and Augmentin 2. DVT prophylaxis- continue Xarelto, pt + dvt 3. D/C planning- home today Discharge Planning Discharge Planning: home
[2017-04-15] MEDS ORDERED: AMOX875T PO (11:52)
[2017-04-15] MEDS ORDERED: OXYC-57 PO (11:52)
[2017-04-15] MEDS ORDERED: SULF800T23 PO (11:52)
--- NOTE | 2017-04-15 11:56 | Discharge Instructions ---
Discharge Instructions Date of Service Apr 15, 2017. Admission Reason for Admission: Left Leg Cellulitis - Possible Dvt Discharge Discharge Diagnosis / Problem: Left lower leg hematoma and cellulitis Discharge Goals Goal(s): Decrease discomfort, Improve function Activity Recommendations Activity Limitations: as noted below Weightbearing Status: Left weightbearing (as tolerated) . Instructions / Follow-Up Instructions / Follow-Up Weightbearing as tolerated left lower extremity. Frequent ice and elevation as needed. Current Hospital Diet Patient's current hospital diet: Regular Diet Discharge Diet Recommended Diet: Regular Diet Pending Studies Studies pending at discharge: no Laboratory Results Hemoglobin A1c Test 04/08/17 03:36 Range/Units Estimated Average Glucose 114 mg/dl Hemoglobin A1c 5.6 4.5-5.6 % Lipid Panel Test 04/08/17 03:36 Range/Units Triglycerides Level 163 H 0-150 mg/dl Cholesterol Level 156 0-200 mg/dl HDL Cholesterol 37 mg/dl Cholesterol/HDL Ratio 4.2 LDL Cholesterol, Calculated 86 mg/dl Medical Emergencies . Who to Call and When: Medical Emergencies: If at any time you feel your situation is an emergency, please call 911 immediately. . Non-Emergent Contact Non-Emergency issues call your: Surgeon Call Non-Emergent contact if: temperature is above 101.5, your pain is not controlled, wound has increased drainage, wound has increased redness . "Provider Documentation" section prepared by Chintan Moreno PA-C. . VTE Core Measure Inpt VTE Proph given/why not?: Other Anticoagulation (Xarelto) [place] Drug Monitoring Program Search Results: patient reviewed within database, no issues identified
[2017-04-15 12:55] VITALS: BP 120/82; PULSE 71; TEMP 36.6; O2SAT 94
[2017-04-16] MEDS ORDERED: VANCOMYCIN TROUGH ONE (01:30)
--- NOTE | 2017-04-27 14:28 | DISCHARGE SUMMARY ---
This is a 56-year-old female patient of Dr. Jacobsen'randy. She sustained a crush injury to her left leg on 03/30/2017. She got it smashed between a cement step and a storm door. The patient reported to [facility] where x-rays were obtained on her tib-fib and her ankle. These were determined to be negative for any types of fractures or dislocations. She was sent home. The following day, she saw her PCP and a D-dimer test was noted to be elevated. She had a chest CT and an ultrasound negative for PE but she was positive for DVT. The patient was subsequently put on Xarelto 15 mg b.i.d.; however, upon visiting her family physician again, they were concerned about a compartment syndrome and her wound of her left lower extremity. She was instructed to stop the Xarelto and was referred to orthopedics. Upon visiting our office, we admitted her to [facility] for IV antibiotics and treatment of her DVT. PAST MEDICAL HISTORY: Irregular heartbeat, acid reflux and obesity. HOSPITAL COURSE: The patient was put on IV vancomycin and then switched to IV daptomycin while she was in her hospital stay. Blood cultures were negative. The patient did have aspirate taken from her wound area where there was swelling. This was negative for any type of organisms, neg Gram stain and cultures. As her hospital course progressed, her wound did get better. We did put her back on her Xarelto for her DVT. Her lower extremity wound continued to improve on IV antibiotics. Her swelling decreased and she was discharged on oral Bactrim. PHYSICAL EXAMINATION: On discharge, left lower extremity wound was healing nicely and starting to scab over. There was no drainage, erythema was minimal around the edges at this time. Calf swelling had improved significantly. She had negative Homans sign at the time of discharge. DIAGNOSIS: Left leg crush injury with deep venous thrombosis and superficial wound, no organisms seen on Gram stain cultures or blood cultures. PLAN: The patient was discharged home. She will continue her preadmission medication. She will go home on Bactrim DS b.i.d. orally. She will continue wound care. She will continue DVT prophylaxis in the form of Xarelto daily 10 mg 1-1/2 tablets b.i.d. and she will follow up with Dr. Jacobsen as scheduled as an outpatient. [facility]
== END 2017-04-15 14:40 | disposition home or self-care (01) | DRG 300 ==
LOC: C.MSW 14:10
PROVIDERS: ADMIT Orthopaedic Surgery Sports Medicine; ATTEND Orthopaedic Surgery Sports Medicine
PROC: 0J9P3ZX Drainage of Left Lower Leg Subcutaneous Tissue and Fascia, Percutaneous Approach, Diagnostic (ICD-10-PCS; principal; 2017-04-13)
DX: I82.402 Acute embolism and thrombosis of unspecified deep veins of left lower extremity (principal); L03.112 Cellulitis of left axilla; S80.12XA Contusion of left lower leg, initial encounter; R00.2 Palpitations; K59.00 Constipation, unspecified; E66.9 Obesity, unspecified; Z68.32 Body mass index [BMI] 32.0-32.9, adult; W23.0XXA Caught, crushed, jammed, or pinched between moving objects, initial encounter; W19.XXXA Unspecified fall, initial encounter; Y92.008 Other place in unspecified non-institutional (private) residence as the place of occurrence of the external cause; Y99.8 Other external cause status

== ENCOUNTER → 2017-04-07 | Outpatient (CLI) | payer BC ==
[2017-04-07 13:27] LABS: BASO % 0.2 %; BASO ABS # 0.02 K/uL (0-0.2); COMPLETE YES; EOS % 2.4 %; HEMATOCRIT 43.2 % (37-47); IG% 0.4 %; LYMPH % 33.9 %; LYMPH ABS # 2.87 K/uL (1.2-3.4); MEAN CELL VOLUME 86.9 fL (80-100); MEAN CORPUSCULAR HEMOGLOBIN 28.4 pg (25-34); MEAN CORPUSCULAR HGB CONC 32.6 g/dl (32-36); MEAN PLATELET VOLUME 11.3 fL (7.4-10.4); MONO % 5.9 %; NEUT % 57.2 %; PLATELET COUNT 212 K/uL (130-400); RED BLOOD COUNT 4.97 M/uL (4.2-5.4); WHITE BLOOD COUNT 8.46 K/uL (4.8-10.8)
[2017-04-07 13:37] LABS: PROTHROMBIN TIME (PATIENT) 10.7 SECONDS (9.0-12.0)
== END | disposition home or self-care (01) ==
LOC: C.LABMFLN 09:56
PROVIDERS: ATTEND Family Medicine
DX: I82.409 Acute embolism and thrombosis of unspecified deep veins of unspecified lower extremity (principal); L03.119 Cellulitis of unspecified part of limb

== ENCOUNTER → 2017-04-21 | Outpatient (CLI) | payer BC ==
[~2017-04-21] MED LIST changes: -AGM875 PO; +AMOX875T PO; +ERGO500037 PO; -LRT5 PO; +OXYC-57 PO; +XRL10 PO
[2017-04-21 16:04] LABS: BASO % 0.2 %; BASO ABS # 0.02 K/uL (0-0.2); COMPLETE YES; EOS % 3.5 %; HEMATOCRIT 45.4 % (37-47); IG% 0.6 %; LYMPH % 31.9 %; LYMPH ABS # 3.63 K/uL (1.2-3.4); MEAN CELL VOLUME 85.2 fL (80-100); MEAN CORPUSCULAR HEMOGLOBIN 28.5 pg (25-34); MEAN CORPUSCULAR HGB CONC 33.5 g/dl (32-36); MONO % 4.9 %; NEUT % 58.9 %; PLATELET COUNT 314 K/uL (130-400); RED BLOOD COUNT 5.33 M/uL (4.2-5.4); WHITE BLOOD COUNT 11.37 K/uL (4.8-10.8)
[2017-04-21 17:21] LABS: BLOOD UREA NITROGEN 15 mg/dl (7-18); BUN/CREATININE RATIO 13.9 (10-20); C-REACTIVE PROTEIN 0.46 mg/dl (0-0.29); CALCIUM 9.3 mg/dl (8.5-10.1); CARBON DIOXIDE 25 mmol/L (21-32); CHLORIDE 105 mmol/L (98-107); GLUCOSE 86 mg/dl (70-99); POTASSIUM 3.8 mmol/L (3.5-5.1); SODIUM 139 mmol/L (136-145)
[2017-04-21 17:24] LABS: ALKALINE PHOSPHATASE 107 U/L (45-117); ALT/SGPT 36 U/L (12-78); AST/SGOT 15 U/L (15-37)
== END | disposition home or self-care (01) ==
LOC: C.LAB1850 14:45
PROVIDERS: ATTEND Physician Assistant
DX: R11.0 Nausea (principal); S80.822A Blister (nonthermal), left lower leg, initial encounter; S80.12XA Contusion of left lower leg, initial encounter; X58.XXXA Exposure to other specified factors, initial encounter

== ENCOUNTER → 2017-05-19 | Outpatient (CLI) | payer BC ==
[~2017-05-19] MED LIST changes: -AMOX875T PO
== END | disposition home or self-care (01) ==
LOC: C.LABMFLN 12:21
PROVIDERS: ATTEND Family Medicine
DX: R19.7 Diarrhea, unspecified (principal)

== ENCOUNTER → 2018-02-12 | Outpatient (CLI) | payer BC ==
[2018-02-12 18:05] LABS: BLOOD UREA NITROGEN 16 mg/dl (7-18); CARBON DIOXIDE 26 mmol/L (21-32); CREATININE 1.07 mg/dl (0.60-1.20); GLUCOSE 89 mg/dl (70-99); SODIUM 137 mmol/L (136-145)
== END | disposition home or self-care (01) ==
LOC: C.LABMFLN 13:28
PROVIDERS: ATTEND Family Medicine
DX: Z13.1 Encounter for screening for diabetes mellitus (principal); E55.9 Vitamin D deficiency, unspecified

== ENCOUNTER → 2018-06-18 | Outpatient (CLI) | payer BC | END | disposition home or self-care (01) | LOC: C.LABMFLN 16:06 | PROVIDERS: ATTEND Family Medicine | DX: R10.9 Unspecified abdominal pain (principal) ==

== ENCOUNTER → 2018-07-03 | Outpatient (CLI) | payer BC | END | disposition home or self-care (01) | LOC: C.LABMFLN 11:00 | PROVIDERS: ATTEND Family Medicine | DX: R31.29 Other microscopic hematuria (principal) ==